=== PATIENT | female | born 1975 | race Caucasian/White ===

== ENCOUNTER 2020-01-10 00:46 | Emergency (ER) | payer MEDICAID, SELFPAY | END 2020-01-10 04:45 | disposition admitted as inpatient to this hospital (09) | LOC: ER 01-28 13:20 | PROVIDERS: Emergency Provider Emergency Medicine; PCP Family Medicine | DX: J18.9 Pneumonia, unspecified organism (principal); G91.1 Obstructive hydrocephalus; F32.9 Major depressive disorder, single episode, unspecified; G82.50 Quadriplegia, unspecified; Z93.1 Gastrostomy status; Z87.820 Personal history of traumatic brain injury; Z86.14 Personal history of Methicillin resistant Staphylococcus aureus infection; Z74.01 Bed confinement status | CPT/HCPCS: 12345; 71045; 80053; 81001; 83605; 85025; 87040; 87804; 96365; 96368; 99283; 99285; J0456; J0696; J2020; J7030; J7050 ==

== ENCOUNTER 2020-01-10 00:46 | Inpatient (IN) | payer MEDICAID, SELFPAY ==
[2020-01-10] VITALS (11 sets, daily range): BP systolic 97–182; BP diastolic 61–102; PULSE 57–121; RESP 17–35; TEMP 37.1–39.3; O2SAT 95–99; BMI 30.9
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
--- NOTE | 2020-01-10 01:13 | XRR_ITS ---
PROCEDURE INFORMATION: Exam: XR Chest, 1 View Exam date and time: 01/10/2020 1:38 AM Age: 44 years old Clinical indication: Cough and fever TECHNIQUE: Imaging protocol: XR of the chest Views: 1 view. COMPARISON: CR Chest 1 [place] [id number] 06/19/2015 4:03 AM FINDINGS: Lungs: Unremarkable. No consolidation. Pleural space: Unremarkable. No pleural effusion. No pneumothorax. Heart/Mediastinum: Unremarkable. No cardiomegaly. Bones/joints: Unremarkable. XR/XR chest 1V portable [id number] IMPRESSION: No acute findings.
[2020-01-10 01:51] LABS: Basophils % 0.2 %; Eosinophils % 0.2 %; Hematocrit 46.5 % (37.0-47.0); Hemoglobin 15.4 g/dL (11.5-15.3); Lymphocytes # 0.7 10^3/uL (0.8-4.8); Mean Corpuscular HGB Conc 33.1 g/dL (30.0-36.0); Mean Corpuscular Hemoglobin 32.3 pg (28.0-34.0); Mean Corpuscular Volume 97.5 fL (81-99); Mean Platelet Volume 12.4 fL (7.4-10.4); Monocytes # 0.8 10^3/uL (0.2-0.9); Monocytes % 4.4 %; Neutrophils # 16.8 10^3/uL (1.8-7.7); Neutrophils % 90.7 %; Nucleated Red Blood Cells % 0 %; Platelet Count 241 10^3/cmm (130-400); Red Blood Count 4.77 10^6/uL (4.1-5.3); Red Cell Distribution Width 11.9 % (12.1-15.1); White Blood Count 18.5 10^3/uL (4.0-10.0)
[2020-01-10] MEDS: sodium chloride 0.9% 1,000 ML 999 ML IV (01:58)
[2020-01-10 02:06] LABS: Lactate (Lactic Acid level) 3.7 mmol/L (0.5-2.2)
[2020-01-10 02:07] LABS: Alanine Aminotransferase 66 U/L (0-33); Albumin Level 4.1 g/dL (3.5-5.2); Alkaline Phosphatase 54 IU/L (35-105); Anion Gap 19.7 (5-19); Aspartate Amino Transferase 34 U/L (0-32); Blood Urea Nitrogen 10 mg/dL (6-20); Calcium 10.2 mg/dL (8.5-10.5); Carbon Dioxide 20 mmol/L (22-29); Chloride 101 mmol/L (98-107); Globulin 3.9 g/dL (1.3-4.6); Glomerular Filtration Rate 132.8 mL/min (90-130); Glucose 119 mg/dL (65-115); Osmolality Calculated 281 mOsm/kg (285-295); Potassium 3.7 mmol/L (3.5-5.1); Sodium 137 mmol/L (136-145); Total Bilirubin 0.7 mg/dL (0.15-1.2)
[2020-01-10 02:13] LABS: Influenza A by IFA Negative (Negative); Influenza B by IFA Negative (Negative)
[2020-01-10] MEDS: ibuprofen 600 mg Tablet J-TUBE (02:32)
[2020-01-10] MEDS: cefTRIAXone 1,000 MG in sodium chloride 0.9% (plus) 50 ML 100 MG IV (02:33)
[2020-01-10] MEDS: azithromycin 500 MG in sodium chloride 0.9% 250 ML 250 MG IV (03:07)
[2020-01-10 03:18] LABS: Bilirubin Urine Neg (NEGATIVE); Blood Urine Neg (Negative); Glucose Urine UA Norm (Normal); Ketones Urine 1+ (Negative); Nitrate Urine Negative (Negative); Protein Urine Trace (Negative); Specific Gravity, Urine 1.025 (1.005-1.030); Urine Appearance Clear (CLEAR); Urine Color Yellow (Yellow); pH Urine 5 (5-7)
[2020-01-10 03:19] LABS: Bacteria Urine 1+; Leukocyte Esterase Urine Negative (Negative); Mucus Urine 3+; RBC Urine 0-4 /hpf (0-2); Squamous Epithelial Cell Urine 0-4 (0-5); Urobilinogen Urine Norm (Negative)
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
--- NOTE | 2020-01-10 04:05 | PC.NURSE ---
During patient rounding, patient was found with darkened ring of urine dried on the reusable tierra under patient. Also while providing cynthia care, dried urine was wiped from patient and appeared dark yellow in color on wet clothes. Patient's cynthia area appeared very reddened and irritated from urine setting on skin. Patient was cleaned and clean disposable chucks and briefs were placed under patient along with clean sheets.
--- NOTE | 2020-01-10 04:07 | CTR_ITS ---
PROCEDURE INFORMATION: Exam: CT Abdomen And Pelvis Without Contrast Exam date and time: 01/10/2020 4:14 AM Age: 44 years old Clinical indication: Abdominal pain; Additional info: Abdominal pain and sepsis TECHNIQUE: Imaging protocol: Computed tomography of the abdomen and pelvis without contrast. Total DLP: 1208.55 mGy-cm Radiation optimization: All CT scans at this facility use at least one of these dose optimization techniques: automated exposure control; mA and/or kV adjustment per patient size (includes targeted exams where dose is matched to clinical indication); or iterative reconstruction. COMPARISON: No relevant prior studies available. FINDINGS: Lungs: Mild dependent atelectasis is present. Liver: Normal. No mass. Gallbladder and bile ducts: Normal. No calcified stones. No ductal dilation. Pancreas: Normal. No ductal dilation. Spleen: Normal. No splenomegaly. Adrenals: Normal. No mass. Kidneys and ureters: Normal. No hydronephrosis. Stomach and bowel: Air and fluid-filled large bowel. Gastrostomy. Appendix: No evidence of appendicitis. Intraperitoneal space: No free fluid within the pelvis or within the dependent portions of the peritoneum. Vasculature: Unremarkable. No abdominal aortic aneurysm. Lymph nodes: Numerous inguinal lymph nodes bilaterally. Nonspecific. Bladder: Unremarkable as visualized. Reproductive: Unremarkable as visualized. Bones/joints: Prior resection of the coccyx. Soft tissues: Unremarkable. Other findings: No acute intra-abdominal process. No inflammatory process. No obstruction. CT/CT abdomen pelvis wo con [id number] IMPRESSION: 1. No acute intra-abdominal process. No inflammatory process. No obstruction. 2. No free fluid within the pelvis or within the dependent portions of the peritoneum. 3. Prior resection of the coccyx. 4. Air and fluid-filled large bowel. 5. Gastrostomy. Radiation Dose CTDIVOL = (mGy): DLP = 1208.55 (mGy-cm)
--- NOTE | 2020-01-10 05:14 | PC.PHAR ---
Vancomycin is dosed at 2000mg IVPB every 12 hours to produce a predicted trough level of 14.30 (population based pharmacokinetic analysis). A trough level has been ordered from the lab to be obtained before the fourth dose to confirm and adjust if needed.
[2020-01-10] MEDS: sodium chloride 0.9% 1,000 ML 100 ML IV ×2 (05:29→16:23)
[2020-01-10] MEDS: pantoprazole DR 40 mg Tablet 20 MG PEG-TUBE (08:04)
[2020-01-10] MEDS: sennosides-docusate Tablet 1 TAB PEG-TUBE ×2 (08:04→17:38)
[2020-01-10] MEDS: polyethylene glycol 3350 Pkt 17 gm PEG-TUBE (08:04)
[2020-01-10] MEDS: acetaminophen 325 mg Tablet 650 MG XX ×2 (10:20→16:22)
--- NOTE | 2020-01-10 11:12 | PC.CHAP ---
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 portable pinch riveter visit [] Patient/Family/Request visit [] Outpatient visit [] Follow-up visit [] Physician referral [] Code/Alert [] Routine visit [] Staff referral [] Actively dying [] Patient sleeping [] Family support [] [] Out of room [] Palliative care [] [] Receiving care in room [] Pre-surgical visit [] Trauma [] Long length of stay [] ICU visit [x] Other: Pt is in isolation Relational/Emotional Strength [] Patient feels connected with others/family/visitors/staff [] Distress [] Loneliness/isolation [] Abandonment Spirituality of Patient [] Person of Yissel [] Attends Mormon of their Yissel [] Believes in Prayer [] Reads Bible or Confucianist materials [] There are Spiritual issues to be addressed Staffing Coordinator Interventions [] Prayer [] Active listening [] Non-anxious presence [] Spiritual/emotional support [] Crisis/trauma care [] Spiritual counseling [] Bereavement support [] Provided bereavement packet [] Provided Bible/devotional materials [] Provided toy/stuffed animal, coloring book to patient or family member [] Provided Communion [] Anointing/[place] [] Salvation [] Completed spiritual assessment [] Other: Impact on Illness or Injury [] Angry [] Fearful [] Anxious [] Often cries [] Exhaustion [] Unable to work [] Unable to attend methodist [] Unable to walk/stand [] Unable to read [] Unable to drive [] Unable to eat/drink [] Unable to sleep [] Unable to be with family [] Patient intubated [] Other: Summary No portable pinch riveter visit or follow up as pt is in isolation Time spent with patient 2 minutes
--- NOTE | 2020-01-10 14:13 | P.PN_ITS ---
Subjective Subjective: Interval history: Patient denies having any pain. Reports being hungry when asked. She cannot speak but nods yes or no appropriately. Continues to spike fever and remains tachycardic with significant leukocytosis. Has history of VRE and MRSA. Vitals/I&O/Wt Last Vital Signs Temp 100.4 F H 01/10/20 11:19 Pulse 101 H 01/10/20 11:19 Resp 20 H 01/10/20 11:19 BP 101/67 01/10/20 11:19 Pulse Ox 96 01/10/20 11:19 01/09/20 01/10/20 01/10/20 22:59 06:59 14:59 Intake Total 1150 / 1150 420 / 420 Balance 1150 / 1150 420 / 420 Weight last 48 hrs Weight 81.647 kg Physical Exam Const: COMMON NORMALS: no apparent distress Resp: COMMON NORMALS: normal respiratory effort and clear to auscultation bilaterally AUSCULTATION: clear to auscultation bilaterally Cardio: COMMON NORMALS: regular rate, regular rhythm and S2 normal heart sound RATE: regular rate RHYTHM: regular rhythm HEART SOUNDS: S2 normal OTHER: No lower extremity edema GI: COMMON NORMALS: normal to inspection, nondistended, normoactive bowel sounds and soft to palpation PALPATION: Yes soft OTHER: Appears to be tender throughout on deep palpation. PEG tube insertion site appears noninfected. Data : 01/10/20 01:31 01/10/20 01:31 Micro: Microbiology 01/10/20 01:31 Blood Culture - Preliminary Blood SPECIMEN COLLECTED 01/10/20 01:44 Blood Culture - Preliminary Blood SPECIMEN COLLECTED A&P Assessment and plan (1) Pneumonia: Status: Acute Qualifiers: Laterality: left Lung location: lower lobe of lung Pneumonia type: due to unspecified organism Qualified Code(s): J18.9 - Pneumonia, unspecified organism Code(s): J18.9 - Pneumonia, unspecified organism (2) Malnourished: Status: Acute Code(s): E46 - Unspecified protein-calorie malnutrition (3) Sepsis: Status: Acute Code(s): A41.9 - Sepsis, unspecified organism Additional A&P Information Sepsis secondary to UTI Urinary tract infection with previous history of VRE. Continue Primaxin and change vancomycin to linezolid. 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 Coding Level of Care Code Acute Public Records Officer for [facility] Alexd Diagnoses Pneumonia J18.9 Laterality: left Lung location: lower lobe of lung Pneumonia type: due to unspecified organism Malnourished E46 Sepsis A41.9
[2020-01-10] MEDS: linezolid premix 600 MG/300 ML PREMIX 300 MG IV (16:22)
[2020-01-11] VITALS: BP 99/65; PULSE 104; RESP 20; TEMP 38.9; O2SAT 93
[2020-01-11] MEDS: linezolid premix 600 MG/300 ML PREMIX 300 MG IV ×2 (03:31→15:07)
[2020-01-11] MEDS: acetaminophen 325 mg Tablet 650 MG XX (03:31)
[2020-01-11 04:00] VITALS: BP 90/60; PULSE 84; RESP 16; TEMP 36.6; O2SAT 97
[2020-01-11] MEDS: sodium chloride 0.9% 1,000 ML 999 ML IV (04:57)
[2020-01-11] MEDS: sodium chloride 0.9% 1,000 ML 100 ML IV ×3 (05:36→22:50)
[2020-01-11 05:55] LABS: Basophils % 0.2 %; Hematocrit 38.9 % (37.0-47.0); Lymphocytes # 1.6 10^3/uL (0.8-4.8); Lymphocytes % 14.4 %; Mean Corpuscular HGB Conc 33.4 g/dL (30.0-36.0); Mean Corpuscular Hemoglobin 33.7 pg (28.0-34.0); Mean Corpuscular Volume 100.8 fL (81-99); Mean Platelet Volume 11.8 fL (7.4-10.4); Monocytes # 0.6 10^3/uL (0.2-0.9); Monocytes % 5.5 %; Neutrophils # 8.7 10^3/uL (1.8-7.7); Neutrophils % 79.6 %; Nucleated Red Blood Cells % 0 %; Platelet Count 203 10^3/cmm (130-400); Red Blood Count 3.86 10^6/uL (4.1-5.3); Red Cell Distribution Width 12.3 % (12.1-15.1); White Blood Count 10.9 10^3/uL (4.0-10.0)
[2020-01-11 06:17] LABS: Anion Gap 13.2 (5-19); Blood Urea Nitrogen 7 mg/dL (6-20); Calcium 8.4 mg/dL (8.5-10.5); Carbon Dioxide 19 mmol/L (22-29); Chloride 107 mmol/L (98-107); Glomerular Filtration Rate 171.8 mL/min (90-130); Glucose 143 mg/dL (65-115); Osmolality Calculated 280 mOsm/kg (285-295); Potassium 3.2 mmol/L (3.5-5.1); Sodium 136 mmol/L (136-145)
--- NOTE | 2020-01-11 06:42 | PC.NURSE ---
notified hospitalist of vitals trending negatively compared to previous with a BP drop to 99/65. Phys ordered liter bolus over one hour - rechecked vitals BP90/60 HR84 Oxy97% R16 T97.9. No further orders at this time.
[2020-01-11 07:57] VITALS: BP 112/77; PULSE 81; RESP 18; TEMP 37.3; O2SAT 97
[2020-01-11] MEDS: sennosides-docusate Tablet 1 TAB PEG-TUBE ×2 (09:21→18:12)
[2020-01-11] MEDS: pantoprazole DR 40 mg Tablet 20 MG PEG-TUBE (09:21)
[2020-01-11] MEDS: polyethylene glycol 3350 Pkt 17 gm PEG-TUBE (09:22)
[2020-01-11 11:29] VITALS: BP 105/72; PULSE 89; RESP 18; TEMP 37.1; O2SAT 92
[2020-01-11 15:12] VITALS: BP 116/72; PULSE 78; RESP 18; TEMP 37.4; O2SAT 96
--- NOTE | 2020-01-11 16:22 | P.PN_ITS ---
Subjective Subjective: Interval history: Patient appears to be gradually improving. She had no fever since midnight. She appears to be more interactive and cheerful. Urine is growing strep group B. Second culture with gram-negative del is still pending Vitals/I&O/Wt Last Vital Signs Temp 99.3 F 01/11/20 15:12 Pulse 78 01/11/20 15:12 Resp 18 01/11/20 15:12 BP 116/72 01/11/20 15:12 Pulse Ox 96 01/11/20 15:12 01/11/20 01/11/20 01/11/20 06:59 14:59 22:59 Intake Total 1400 / 3270 710 / 710 Balance 1400 / 3270 710 / 710 Weight last 48 hrs Weight 81.647 kg Physical Exam Const: COMMON NORMALS: no apparent distress Resp: COMMON NORMALS: normal respiratory effort and clear to auscultation bilaterally AUSCULTATION: clear to auscultation bilaterally Cardio: COMMON NORMALS: regular rate, regular rhythm and S2 normal heart sound RATE: regular rate RHYTHM: regular rhythm HEART SOUNDS: S2 normal OTHER: No lower extremity edema GI: COMMON NORMALS: normal to inspection, nondistended, normoactive bowel sounds, soft to palpation and non-tender PALPATION: Yes soft OTHER: Appears to be tender throughout on deep palpation. PEG tube insertion site appears noninfected. Data : 01/11/20 05:30 01/11/20 05:30 Micro: Microbiology 01/10/20 05:40 Urine Culture - Preliminary Urine Catheterized Strep agalactiae - (group b) Gram Negative Rods 01/10/20 01:31 Blood Culture - Preliminary Blood NEGATIVE TO DATE 01/10/20 01:44 Blood Culture - Preliminary Blood NEGATIVE TO DATE A&P Assessment and plan (1) Pneumonia: Status: Acute Qualifiers: Laterality: left Lung location: lower lobe of lung Pneumonia type: due to unspecified organism Qualified Code(s): J18.9 - Pneumonia, unspecified organism Code(s): J18.9 - Pneumonia, unspecified organism (2) Malnourished: Status: Acute Code(s): E46 - Unspecified protein-calorie malnutrition (3) Sepsis: Status: Acute Code(s): A41.9 - Sepsis, unspecified organism Additional A&P Information Sepsis secondary to UTI Urinary tract infection with previous history of VRE. Continue current antibiotics for now. 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 No decubital ulcer, she uses adult diapers, no chronic indwelling catheter Protein calorie malnourishment: Low albumin, Jevity 1.2 1 can add a.m., noon, 4 PM and at midnight, 60 cc of water flushes before and after medications For quadriplegia secondary to cranial injury she takes dantrolene 25 mg daily, Keppra 100 mg oral liquid 7.5 mL twice a day Constipation: Senna S and MiraLAX daily Tylenol for as needed usage for pain and fever DNR/DNI Attestations Medical Necessity Statement*: Patient with quadriplegia and UTI with sepsis requires close inpatient monitoring and treatment will deemed safe for discharge. Coding Level of Care Code Acute Neurosurgery Research Director for [facility] Diagnoses Pneumonia J18.9 Laterality: left Lung location: lower lobe of lung Pneumonia type: due to unspecified organism Malnourished E46 Sepsis A41.9
[2020-01-11 18:03] LABS: Vancomycin Trough < 4.0 ug/mL (10-15)
--- NOTE | 2020-01-11 19:10 | PC.NURSE ---
Introduction of staff and report received, aidet.
[2020-01-11 20:00] VITALS: BP 112/74; PULSE 82; RESP 20; TEMP 37.6; O2SAT 96
[2020-01-12] MEDS: linezolid premix 600 MG/300 ML PREMIX 300 MG IV ×2 (03:41→15:31)
[2020-01-12 04:00] VITALS: BP 106/71; PULSE 72; RESP 24; TEMP 37; O2SAT 97
[2020-01-12] MEDS: enoxaparin 40 mg/0.4 mL Syringe SUBCUT (05:53)
[2020-01-12 07:32] VITALS: BP 111/74; PULSE 83; RESP 18; TEMP 36.7; O2SAT 98
[2020-01-12] MEDS: pantoprazole DR 40 mg Tablet 20 MG PEG-TUBE (08:06)
[2020-01-12] MEDS: sennosides-docusate Tablet 1 TAB PEG-TUBE ×2 (08:07→19:18)
[2020-01-12] MEDS: polyethylene glycol 3350 Pkt 17 gm PEG-TUBE (08:07)
[2020-01-12 10:00] VITALS: BMI 36.6
[2020-01-12 10:36] VITALS: BP 108/70; PULSE 77; RESP 18; TEMP 37; O2SAT 97
[2020-01-12 11:19] LABS: Glucose Point of Care 117 mg/dL (70-110)
[2020-01-12 11:42] LABS: Basophils % 0.3 %; Eosinophils % 0.5 %; Hematocrit 40.3 % (37.0-47.0); Hemoglobin 13.3 g/dL (11.5-15.3); Lymphocytes # 2.1 10^3/uL (0.8-4.8); Lymphocytes % 34.6 %; Mean Corpuscular Hemoglobin 32.3 pg (28.0-34.0); Mean Corpuscular Volume 97.8 fL (81-99); Mean Platelet Volume 11.8 fL (7.4-10.4); Monocytes # 0.5 10^3/uL (0.2-0.9); Monocytes % 8.5 %; Neutrophils # 3.4 10^3/uL (1.8-7.7); Neutrophils % 55.9 %; Nucleated Red Blood Cells % 0 %; Platelet Count 231 10^3/cmm (130-400); Red Blood Count 4.12 10^6/uL (4.1-5.3); Red Cell Distribution Width 12.1 % (12.1-15.1)
[2020-01-12 12:06] LABS: Alanine Aminotransferase 31 U/L (0-33); Albumin Level 3.2 g/dL (3.5-5.2); Alkaline Phosphatase 46 IU/L (35-105); Anion Gap 15.8 (5-19); Aspartate Amino Transferase 18 U/L (0-32); Blood Urea Nitrogen 3 mg/dL (6-20); Calcium 9.2 mg/dL (8.5-10.5); Carbon Dioxide 21 mmol/L (22-29); Chloride 108 mmol/L (98-107); Globulin 3.1 g/dL (1.3-4.6); Glomerular Filtration Rate 239.5 mL/min (90-130); Glucose 131 mg/dL (65-115); Osmolality Calculated 289 mOsm/kg (285-295); Potassium 3.8 mmol/L (3.5-5.1); Sodium 141 mmol/L (136-145); Total Bilirubin 0.2 mg/dL (0.15-1.2); Total Protein 6.3 g/dL (6.6-8.7)
--- NOTE | 2020-01-12 13:01 | PM.PN ---
Subjective Subjective: Interval history: Patient denies any pain. She continues to remain afebrile with stable vitals. Her urine is growing ESBL E. coli and strep agalactiae. Discussed with RN. Patient has no evidence of diarrhea and tolerates feeds well. Vitals/I&O/Wt Last Vital Signs Temp 98.6 F 01/12/20 10:36 Pulse 77 01/12/20 10:36 Resp 18 01/12/20 10:36 BP 108/70 01/12/20 10:36 Pulse Ox 97 01/12/20 10:36 01/11/20 01/12/20 01/12/20 22:59 06:59 14:59 Intake Total 2480 / 3290 580 / 3870 100 / 100 Balance 2480 / 3290 580 / 3870 100 / 100 Weight last 48 hrs Weight 96.757 kg Weight 96.757 kg Physical Exam Const: COMMON NORMALS: no apparent distress Resp: COMMON NORMALS: normal respiratory effort and clear to auscultation bilaterally AUSCULTATION: clear to auscultation bilaterally Cardio: COMMON NORMALS: regular rate, regular rhythm and S2 normal heart sound RATE: regular rate RHYTHM: regular rhythm HEART SOUNDS: S2 normal OTHER: No lower extremity edema GI: COMMON NORMALS: normal to inspection, nondistended, normoactive bowel sounds, soft to palpation and non-tender PALPATION: Yes soft OTHER: Appears to be tender throughout on deep palpation. PEG tube insertion site appears noninfected. Data : 01/12/20 11:30 01/12/20 11:30 Micro: Microbiology 01/10/20 05:40 Urine Culture - Final Urine Catheterized Strep agalactiae - (group b) Escherichia coli esbl A&P Assessment and plan (1) Pneumonia: Status: Acute Qualifiers: Laterality: left Lung location: lower lobe of lung Pneumonia type: due to unspecified organism Qualified Code(s): J18.9 - Pneumonia, unspecified organism Code(s): J18.9 - Pneumonia, unspecified organism (2) Malnourished: Status: Acute Code(s): E46 - Unspecified protein-calorie malnutrition (3) Sepsis: Status: Acute Code(s): A41.9 - Sepsis, unspecified organism Additional A&P Information Sepsis secondary to UTI Urinary tract infection with ESBL E. coli and strep group B. Continue current antibiotics for now. Patient will require ertapenem 1 g daily for 10 days upon discharge. 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 No decubital ulcer, she uses adult diapers, no chronic indwelling catheter Protein calorie malnourishment: Low albumin, Jevity 1.2 1 can add a.m., noon, 4 PM and at midnight, 60 cc of water flushes before and after medications For quadriplegia secondary to cranial injury she takes dantrolene 25 mg daily, Keppra 100 mg oral liquid 7.5 mL twice a day Constipation: Senna S and MiraLAX daily Tylenol for as needed usage for pain and fever DNR/DNI Attestations Medical Necessity Statement*: Patient with drug-resistant UTI requiring IV antibiotic requires close inpatient monitoring and treatment till PICC line is placed after which patient can be dismissed to nursing facility on IV ertapenem 1 g daily for 10 days. Coding Level of Care Code Acute Dredge Engineer for [facility] Diagnoses Pneumonia J18.9 Laterality: left Lung location: lower lobe of lung Pneumonia type: due to unspecified organism Malnourished E46 Sepsis A41.9
[2020-01-12 15:17] VITALS: BP 110/74; PULSE 70; RESP 20; TEMP 36.8; O2SAT 98
[2020-01-12] MEDS: sodium chloride 0.9% 1,000 ML 100 ML IV (19:17)
[2020-01-12 20:00] VITALS: BP 109/72; PULSE 75; RESP 18; TEMP 37.2; O2SAT 100
[2020-01-13] VITALS: BP 108/72; PULSE 78; RESP 18; TEMP 37.3; O2SAT 99
[2020-01-13] MEDS: linezolid premix 600 MG/300 ML PREMIX 300 MG IV (02:36)
[2020-01-13 04:00] VITALS: BP 105/70; PULSE 80; RESP 19; TEMP 37.1; O2SAT 97
[2020-01-13 06:19] LABS: Basophils % 0.3 %; Eosinophils # 0.1 10^3/uL (0.0-0.8); Eosinophils % 1.3 %; Hematocrit 38.4 % (37.0-47.0); Hemoglobin 13.1 g/dL (11.5-15.3); Lymphocytes # 2.8 10^3/uL (0.8-4.8); Lymphocytes % 45.4 %; Mean Corpuscular HGB Conc 34.1 g/dL (30.0-36.0); Mean Corpuscular Hemoglobin 33.4 pg (28.0-34.0); Mean Platelet Volume 11.5 fL (7.4-10.4); Monocytes # 0.5 10^3/uL (0.2-0.9); Monocytes % 8.5 %; Neutrophils # 2.7 10^3/uL (1.8-7.7); Neutrophils % 44.3 %; Nucleated Red Blood Cells % 0 %; Platelet Count 259 10^3/cmm (130-400); Red Blood Count 3.92 10^6/uL (4.1-5.3); Red Cell Distribution Width 12.2 % (12.1-15.1); White Blood Count 6.1 10^3/uL (4.0-10.0)
[2020-01-13] MEDS: enoxaparin 40 mg/0.4 mL Syringe SUBCUT (06:19)
[2020-01-13] MEDS: sodium chloride 0.9% 1,000 ML 100 ML IV (06:20)
[2020-01-13 06:36] LABS: Alanine Aminotransferase 24 U/L (0-33); Albumin Level 3.2 g/dL (3.5-5.2); Alkaline Phosphatase 41 IU/L (35-105); Anion Gap 15.5 (5-19); Aspartate Amino Transferase 13 U/L (0-32); Blood Urea Nitrogen 5 mg/dL (6-20); Calcium 9.2 mg/dL (8.5-10.5); Carbon Dioxide 22 mmol/L (22-29); Chloride 107 mmol/L (98-107); Glomerular Filtration Rate 239.5 mL/min (90-130); Glucose 110 mg/dL (65-115); Osmolality Calculated 288 mOsm/kg (285-295); Potassium 3.5 mmol/L (3.5-5.1); Sodium 141 mmol/L (136-145); Total Bilirubin 0.2 mg/dL (0.15-1.2); Total Protein 6.2 g/dL (6.6-8.7)
[2020-01-13 07:56] VITALS: BP 109/72; PULSE 76; RESP 16; TEMP 37.1; O2SAT 95
[2020-01-13] MEDS: sennosides-docusate Tablet 1 TAB PEG-TUBE ×2 (08:41→17:52)
[2020-01-13] MEDS: pantoprazole DR 40 mg Tablet 20 MG PEG-TUBE (08:41)
[2020-01-13] MEDS: polyethylene glycol 3350 Pkt 17 gm PEG-TUBE (08:42)
--- NOTE | 2020-01-13 08:45 | XR_ITS ---
WS: [id number] CHEST XRAY TECHNIQUE: Portable chest. CLINICAL INFORMATION: picc placement COMPARISON: January 10, 2020 FINDINGS: Right PICC line with tip in good position in the mid SVC. Heart: Cardiomegaly. Lungs: Shallow inspiration with mild pulmonary vascular congestion. No focal pneumonia. Bones: Mild thoracolumbar curve Cholecystectomy clips. XR/XR chest 1V portable [id number] IMPRESSION: Right PICC line in good position with tip in the mid SVC.
[2020-01-13] MEDS: ertapenem 1,000 MG in sodium chloride 0.9% (plus) 100 ML 200 MG IV (11:44)
[2020-01-13 11:50] VITALS: BP 113/80; PULSE 83; RESP 20; TEMP 37.3; O2SAT 96
--- NOTE | 2020-01-13 13:13 | P.DS_ITS ---
Discharge Providers Date of Admission: 01/10/20 03:39 Date of Discharge: January 13, 2020 Attending Provider at Admission: Abril Tamez MD Attending Provider at Discharge: Albert Lopez MD Primary Care Provider: Rashad Locke Diagnoses at Discharge Discharge Diagnosis (1) Pneumonia: Status: Acute Qualifiers: Laterality: left Lung location: lower lobe of lung Pneumonia type: due to unspecified organism Qualified Code(s): J18.9 - Pneumonia, unspecified organism (2) Malnourished: Status: Acute (3) Sepsis: Status: Acute (4) UTI due to extended-spectrum beta lactamase (ESBL) producing Escherichia coli: Status: Acute Reason for Visit Reason for Visit: Reason For Visit: fever Hospital Course Discharge Summary: Patient presented with fever secondary to urinary tract infection. She is quadriplegic and is currently a resident of nursing facility. She was started on fluids and antibiotics and gradually improved. Because her urine came back with ESBL infection PICC line was placed and patient will be dismissed today on ertapenem for 10 more days. Patient is much improved based on her grandmother at bedside. She is cheerful and denies any pain. I will switch Pepcid to Protonix to avoid any effect on smooth muscle that could potentially predispose patient to UTI. Physical Exam Const: COMMON NORMALS: no apparent distress Resp: COMMON NORMALS: normal respiratory effort and clear to auscultation bilaterally AUSCULTATION: clear to auscultation bilaterally Cardio: COMMON NORMALS: regular rate, regular rhythm and S2 normal heart sound RATE: regular rate RHYTHM: regular rhythm HEART SOUNDS: S2 normal OTHER: No lower extremity edema GI: COMMON NORMALS: normal to inspection, nondistended, normoactive bowel sounds, soft to palpation and non-tender PALPATION: Yes soft Discharge Data Data Completed and Pending: Completed Studies During Hospitalization Category Date Time Status CT abdomen pelvis wo con [id number] Urge nt Cat Scan 01/10/20 04:07 Completed XR chest 1V sara ble [id number] Routine Exams 01/13/20 08:45 Completed XR chest 1V sara ble [id number] Stat Exams 01/10/20 01:13 Completed Pending at discharge Category Date Time Status Blood Culture Sta t Lab 01/10/20 01:31 Results Complete Blood Co unt w/Auto AM LABS Lab 01/14/20 04:00 Ordered Complete Blood Co unt w/Auto AM LABS Lab 01/15/20 04:00 Ordered Comprehensive Met abolic Panel AM LA BS Lab 01/14/20 04:00 Ordered Comprehensive Met abolic Panel AM LA BS Lab 01/15/20 04:00 Ordered Labs from last 24 hours 01/13/20 01/13/20 06:07 06:07 WBC 6.1 RBC 3.92 L Hgb 13.1 Hct 38.4 MCV 98.0 MCH 33.4 MCHC 34.1 RDW 12.2 Plt Count 259 MPV 11.5 H Neut % (Auto) 44.3 Lymph % (Auto) 45.4 [place] % (Auto) 8.5 Eos % (Auto) 1.3 Baso % (Auto) 0.3 Neut # (Auto) 2.7 Lymph # (Auto) 2.8 [place] # (Auto) 0.5 Eos # (Auto) 0.1 Baso # (Auto) 0.0 Nucleated RBC % (a uto) 0 Nucleated RBCs # 0.0 Sodium 141 Potassium 3.5 Chloride 107 Carbon Dioxide 22 Anion Gap 15.5 BUN 5 L Creatinine 0.3 L GFR Calculation 239.5 H Glucose 110 Calculated Osmolal ity 288 Calcium 9.2 Total Bilirubin 0.2 AST 13 ALT 24 Alkaline Phosphata se 41 Total Protein 6.2 L Albumin 3.2 L Globulin 3.0 Vitals: Last Vital Signs Temp 99.1 F 01/13/20 11:50 Pulse 83 01/13/20 11:50 Resp 20 H 01/13/20 11:50 BP 113/80 01/13/20 11:50 Pulse Ox 96 01/13/20 11:50 Discharge Plan Discharge Patient Disposition: Xfer SNF Condition: Stable Prescriptions: New pantoprazole 40 mg Tablet,Delayed Release (Dr/Ec) 20 mg peg-tube DAILY Qty: 30 RF: 0 ertapenem [Invanz] 1 gram recon soln 1 gm IV DAILY Qty: 10 RF: 0 Continued ascorbic acid (vitamin C) 500 mg peg-tube DAILY RF: 0 dantrolene 25 mg G-tube DAILY RF: 0 Depo-Provera 150 mg IM DIRECTED RF: 0 polyethylene glycol 3350 17 g peg-tube DAILY RF: 0 1 tab G-tube DAILY RF: 0 Zyrtec 5 mg peg-tube DAILY RF: 0 ferrous sulfate 300 mg peg-tube BID RF: 0 levetiracetam 7.5 ml G-tube BID RF: 0 potassium chloride 20 meq peg-tube BID RF: 0 Senokot 8.6 mg peg-tube BID RF: 0 Tylenol 500 mg peg-tube PRN RF: 0 albuterol sulfate 1 amp nebulizer PRN RF: 0 bisacodyl 10 mg MS PRN RF: 0 Discontinued Pepcid 20 mg G-tube DAILY RF: 0 Discharge Orders: Discharge Order (Routine); Ordered 01/13/20 Ordered By: Albert Lopez Referrals: [facility] [Other] Rashad Locke [Primary Care Provider] - Discharge Diet: Usual diet Discharge Activity: Resume usual activity Activity Restrictions/Additional Instructions: Please call your doctor or present to emergency department if your condition worsens or you develop diarrhea. Patient to have PICC line removed after successful treatment of UTI in 10 days. Discharge Attestations Time Spent in Discharge Care*: greater than 30 min Quality Metrics Clinical Quality Measures During this hospital stay, did patient experience: None Coding Level of Care Code Acute Operations Leader for [facility] Fwd Diagnoses Pneumonia J18.9 Laterality: left Lung location: lower lobe of lung Pneumonia type: due to unspecified organism Malnourished E46 Sepsis A41.9 UTI due to extended-spectrum beta lactamase (ESBL) producing Escherichia coli N39.0; B96.29; Z16.12
[2020-01-13 13:36] VITALS: BP 113/80; PULSE 83; RESP 20; TEMP 37.3; O2SAT 96
[2020-01-13 15:43] VITALS: PULSE 77; RESP 16; TEMP 37.4; O2SAT 95
== END 2020-01-13 18:17 | disposition skilled nursing facility (03) | DRG 871 ==
LOC: ER 03:35 → MEDSURG 04:09
PROVIDERS: Physician Assistant; Admitting Provider Internal Medicine; Emergency Provider Emergency Medicine; PCP Family Medicine; Visit Provider Internal Medicine
DX: A41.9 Sepsis, unspecified organism (principal); J18.9 Pneumonia, unspecified organism; G82.50 Quadriplegia, unspecified; E46 Unspecified protein-calorie malnutrition; N39.0 Urinary tract infection, site not specified; Z16.12 Extended spectrum beta lactamase (ESBL) resistance; B96.29 Other Escherichia coli [E. coli] as the cause of diseases classified elsewhere; R61 Generalized hyperhidrosis; K59.00 Constipation, unspecified; Z66 Do not resuscitate; B95.4 Other streptococcus as the cause of diseases classified elsewhere; Z68.36 Body mass index [BMI] 36.0-36.9, adult; Z74.01 Bed confinement status; Z79.51 Long term (current) use of inhaled steroids; Z79.82 Long term (current) use of aspirin
CPT/HCPCS: 12345; 36415; 36416; 36569; 71045; 74176; 80048; 80053; 80202; 81001; 82962; 83605; 85025; 87040; 87077; 87086; 87186; 87804; 96372; 99283; J0456; J0696; J0743; J1335; J1650; J2020; J3370; J7030; J7040; J7050

== ENCOUNTER 2021-11-13 16:18 | Emergency (ER) | payer MEDICAID, SELFPAY ==
[2021-11-13 16:18] VITALS: BP 108/51; PULSE 73; RESP 15; O2SAT 95
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
== END 2021-11-13 16:38 | disposition home or self-care (01) ==
LOC: ER 04-30 12:40
PROVIDERS: Emergency Provider Family Medicine; PCP Family Medicine
DX: K94.23 Gastrostomy malfunction (principal)

== ENCOUNTER → 2022-08-14 14:47 | Outpatient (BNVA) | payer MEDICAID, SELFPAY | PROVIDERS: PCP Internal Medicine; Visit Provider Otolaryngology | DX: L98.9 Disorder of the skin and subcutaneous tissue, unspecified (principal) | CPT/HCPCS: 99203 ==

== ENCOUNTER 2022-08-22 09:00 | Day surgery (SDC) | payer MEDICAID, SELFPAY ==
[2022-08-21 09:59] VITALS: BMI 36.7
[2022-08-22] VITALS (12 sets, daily range): BP systolic 110–129; BP diastolic 60–89; PULSE 63–99; RESP 16–23; TEMP 36.6–37.2; O2SAT 91–97
--- NOTE | 2022-08-22 09:21 | W.PM.OPSUD ---
Surgery/Procedure H&P Update DATE OF PROCEDURE: August 22, 2022 DATE H&P PERFORMED: 08/14/22 H&P UPDATE INFORMATION: I have reviewed H&P completed within last 30 days, I have examined patient prior to procedure and No changes to prior documentation CHANGES TO PREVIOUS DOCUMENTATION: No changes PREOP DIAGNOSIS: External left nasal lesion PRIMARY INDICATION FOR PROCEDURE: Left lateral alar external nasal mass/lesion. PLANNED PROCEDURE: Operation Date: 08/22/22 10:10 Proposed Procedures p [id number]- Excision of left external nasal lesion and repair with flap(Left) - Shashi Bowman MD
[2022-08-22] MEDS: sodium chloride 0.9% 1,000 ML 30 ML IV (10:24)
[2022-08-22] MEDS: ceFAZolin 2,000 MG in sodium chloride 0.9% (plus) 50 ML 100 MG IV (10:34)
[2022-08-22] MEDS: neomycin-poly-bacitracin oint 28 gm 1 APPLIC TOPICAL (11:59)
--- NOTE | 2022-08-22 12:14 | P.OP_ITS ---
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 Flap less than 10 cm? Implants: Telfa packing left nostril area Specimens removed/disposition: Skin lesion from left alar region sent for frozen section. Pathology: Frozen section returned as margins clear with pathology on frozen consistent with mucinous basal cell carcinoma. Surgeon: Shashi Bowman MD Anesthesia: General and Local Estimated blood loss: 20 mL Complications: No complications Findings: Patient had a 1 cm plus enlarged exophytic partially pedunculated lobulated mass growing on the left lateral alar skin. It has been growing for an extended period of time and then suddenly started changing and growing rapidly. Seen in the office and this was considered suspicious for malignancy. Brief History: 46-year-old female patient with left external nasal alar skin lesion consistent with malignancy brought to the operating room at this time to undergo excision. She will have this done with LMA and local. The procedure its risks and complications are understood by caregivers and informed consent granted. They understand that a reconstructive nasolabial flap will be used for reconstruction. Frozen section will be used for diagnosis and margins. Risks include bleeding infection numbness scarring swelling bruising cosmetic change and need for additional treatment as well as anesthetic risks. With these things understood informed consent was granted and witnessed. Procedure: Description of procedure: The patient was placed on the operating table in the supine position. Adequate general LMA anesthesia was obtained. She was repositioned into a semirecumbent position and tilted slightly to the right side. The timeout was accomplished identifying the patient date of plan procedure allergies fire risk and medications given. With all in agreement the procedure continued. Trent the site was noted. The area was cleansed with alcohol. A total of 8.5 mL of 2% Xylocaine with 1 100,000 epinephrine was used to infiltrate in a field and local block. Then the patient was prepped and draped in usual fashion. Eye protection was accomplished. Care was taken to make sure that the ChloraPrep did not get anywhere near her eyes. The marking pen was used to outline the excision pattern which incorporated the alar rim and nostril area extending inward for about 5 mm. The excision area was approximately 2 x 2 externally. This was excised and marked laterally with a suture. It was forwarded for frozen section pathology. While that was pending hemostasis was attained with bipolar cautery. A planned nasolabial flap was laid out but incisions were not made until we knew that we had clear margins. Pathology returned as mucinous basal cell carcinoma with all margins clear. With that information accomplished the nasolabial flap was incised with a 15 blade making sure that the vascular supply was maintained into the skin and the entire flap was viable. Then the flap was rotated into proper position and sutured in multiple layers with interrupted 4-0 chromic deep and intranasally and 5-0 nylon to close the skin together. Once this was accomplished pressure was applied. No active bleeding was encountered. Telfa was applied coated with Neosporin into the left nostril extending approximately 2.5 cm into the nose. This was to keep the nose and nostril area patent. The skin was then cleansed. With no bleeding evident Neosporin ointment was applied over the external incisions. Throat was suctioned. Patient was returned to anesthesia for wake- up and transport to recovery. She tolerated the procedure well and arrived in recovery in stable condition.
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
[2022-08-22] MEDS: acetaminophen 650 mg/20.3 mL UDC 1000 MG PO (13:20)
--- NOTE | 2022-08-22 14:05 | SUR.PHASEII ---
[id number] report given to Gwendolyn at [facility],d/c instructions given to family and informed nurse Gwendolyn when last liquid tylenol given,phone no [phone]
== END 2022-08-22 14:00 | disposition home or self-care (01) ==
PROVIDERS: PCP Internal Medicine; Visit Provider Otolaryngology
PROC: 0HB1XZZ Excision of Face Skin, External Approach (ICD-10-PCS; CPT 14060; principal; 2022-08-22 10:00)
DX: C44.311 Basal cell carcinoma of skin of nose (principal); Z87.820 Personal history of traumatic brain injury; G83.9 Paralytic syndrome, unspecified; Z86.14 Personal history of Methicillin resistant Staphylococcus aureus infection
CPT/HCPCS: 14060; 88304; 88331; J1100; J2405; J2704; J3010; J7030

== ENCOUNTER → 2022-08-28 12:56 | Outpatient (BNVA) | payer MEDICAID, SELFPAY | PROVIDERS: PCP Internal Medicine; Visit Provider Otolaryngology | DX: C44.311 Basal cell carcinoma of skin of nose; Z48.817 Encounter for surgical aftercare following surgery on the skin and subcutaneous tissue | CPT/HCPCS: 99024 ==

== ENCOUNTER → 2022-08-30 11:05 | Outpatient (BNVA) | payer MEDICAID, SELFPAY | PROVIDERS: PCP Internal Medicine; Visit Provider Otolaryngology | DX: Z48.89 Encounter for other specified surgical aftercare (principal); L98.9 Disorder of the skin and subcutaneous tissue, unspecified; C44.311 Basal cell carcinoma of skin of nose | CPT/HCPCS: 99024 ==

== ENCOUNTER → 2022-10-23 08:36 | Outpatient (BNVA) | payer MEDICAID, SELFPAY | PROVIDERS: PCP Internal Medicine; Visit Provider Otolaryngology | DX: L98.9 Disorder of the skin and subcutaneous tissue, unspecified (principal) | CPT/HCPCS: 99024 ==

== ENCOUNTER 2025-02-12 10:06 | Inpatient (IN) | payer MEDICAID, SELFPAY ==
[2025-02-12] VITALS (7 sets, daily range): BP systolic 111–138; BP diastolic 63–96; PULSE 102–117; RESP 15–34; TEMP 37.9–38.4; O2SAT 94–98; BMI 37.4
--- NOTE | 2025-02-12 10:12 | XRR_ITS ---
PROCEDURE INFORMATION: Exam: XR Chest Exam date and time: 02/12/2025 10:50 AM Age: 49 years old Clinical indication: Other: Weakness; PT arrives via EMS from [facility]. W/ C/O of fever and worry of sepsis. 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 HX of tbi, nonverbal. TECHNIQUE: Imaging protocol: Radiologic exam of the chest. Views: 1 view. COMPARISON: CR XR chest 1V portable [id number] 01/13/2020 9:51 AM FINDINGS: Lungs: The pulmonary vessels are within normal limits. The lungs are clear. Pleural spaces: No pneumothorax. Heart/Mediastinum: The cardiomediastinal silhouette is within normal limits. Bones/joints: Osseous structure is unremarkable. XR/XR chest 1V portable [id number] IMPRESSION: No acute pulmonary finding.
[2025-02-12 10:33] LABS: Basophils # 0.1 10^3/uL (0.0-0.1); Basophils % 0.3 %; Hematocrit 46.9 % (36-47); Lymphocytes # 1.6 10^3/uL (0.8-4.8); Lymphocytes % 7.2 %; Mean Corpuscular HGB Conc 32.6 g/dL (30-55); Mean Corpuscular Hemoglobin 31.9 pg (27-33); Mean Corpuscular Volume 97.9 fl (85-98); Mean Platelet Volume 11.4 fL (7.4-10.4); Monocytes % 4.2 %; Neutrophils % 87.6 %; Nucleated Red Blood Cells % 0 %; Platelet Count 262 10^3/cmm (157-399); Red Blood Count 4.79 10^6/uL (3.85-5.65); Red Cell Distribution Width 12.4 % (12.1-15.1); White Blood Count 22.72 10^3/uL (3.29-11.43)
--- NOTE | 2025-02-12 10:35 | PC.PHAR ---
patient is from [facility]
[2025-02-12 10:37] LABS: Erythrocyte Sedimentation Rate 17 mm/hr (0-15)
[2025-02-12 10:43] LABS: Bilirubin Urine Neg (Negative); Blood Urine 3+ (Negative); Glucose Urine UA 4+ (Normal); Ketones Urine 1+ (Negative); Leukocyte Esterase Urine 1+ (Negative); Nitrate Urine Negative (Negative); Protein Urine Neg (Negative); Specific Gravity, Urine 1.015 (1.005-1.030); Urine Appearance Clear (CLEAR); Urine Color Yellow (Yellow); Urobilinogen Urine Neg (Negative); pH Urine 5 (5-7)
[2025-02-12 10:45] LABS: Hyaline Casts Urine 0.81 /lpf; Squamous Epithelial Cell Urine 0-5 /hpf (0-5); WBC Urine 21-50 /hpf (0-5)
[2025-02-12 10:53] LABS: Add Urine Culture? Yes; Alanine Aminotransferase 34 U/L (0-33); Albumin Level 3.6 g/dL (3.5-5.2); Alkaline Phosphatase 69 U/L (35-105); Anion Gap 16.7 (5-19); Aspartate Amino Transferase 23 U/L (0-32); Bacteria Urine 2+ /hpf; Blood Urea Nitrogen 12 mg/dL (6-20); C Reactive Protein 46.3 mg/L (0.0-4.9); Calcium 8.9 mg/dL (8.5-10.5); Carbon Dioxide 18 mmol/L (22-29); Chloride 106 mmol/L (98-107); Creatinine Clr Calc Pharmacy 190.1053; Globulin 3.2 g/dL (1.3-4.6); Glomerular Filtration Rate 168.3 mL/min (90-130); Glucose 228 mg/dL (65-115); Osmolality Calculated 291 mOsm/kg (285-295); Potassium 3.7 mmol/L (3.5-5.1); Sodium 137 mmol/L (136-145); Total Bilirubin 0.6 mg/dL (0.15-1.2); Total Protein 6.8 g/dL (6.6-8.7); UA Slide Review UA Slide Review Perf
[2025-02-12 10:55] LABS: Lactic Sepsis W/Reflex 3.4 mmol/L (0.5-2.2)
[2025-02-12 10:59] LABS: Procalcitonin 0.41 ng/mL (0-0.5)
[2025-02-12 11:18] LABS: Influenza A NEGATIVE (Negative); Influenza B NEGATIVE (Negative); Respiratory Syncytial Virus Ce NEGATIVE (Negative); SARS-CoV-2 PCR NEGATIVE (Negative)
[2025-02-12 11:20] LABS: Reflex Lactate Order REFLEX LACTIC ORDERD
[2025-02-12 11:27] LABS: ABG PH Result 7.44 (7.35-7.45); Arterial Blood Gas Hematocrit 50.3 % (37-47); Base Excess ABG -1.9 mmol/L (-2.0-2.0); Blood Gas Allen Test Pos; Blood Gas Operator Identificat glc; Blood Gas Sample Site Radial, right; Blood Gas Sample Type Arterial; Carboxyhemoglobin 1.2 %THgb (0.4-20.1); HCO3 ABG 21.1 mmol/L (22-26); HGB O2 Sat 95.3 % (95-100); Ionized Calcium Level - ABG 1.2 mmol/L (1.1-1.4); Methemoglobin 0.7 % (0.4-1.5); Oxygen Device ROOM AIR; Oxygen Saturation ABG 97.1; PO2 ABG 80.6 mmHg (80.0-100.0); PO2 FiO2 Ratio Arterial Blood 383; Potassium Level - ABG 3.6 mmol/L (3.5-5.0); Total Hemoglobin 16.4 g/dL (12-16)
--- NOTE | 2025-02-12 11:39 | CTR_ITS ---
PROCEDURE INFORMATION: Exam: CT Chest With Contrast; Diagnostic Exam date and time: 02/12/2025 11:56 AM Age: 49 years old Clinical indication: Abdominal pain; Other: Sepsis; Additional info: Trauma TECHNIQUE: Imaging protocol: Diagnostic computed tomography of the chest with contrast. Radiation optimization: All CT scans at this facility use at least one of these dose optimization techniques: automated exposure control; mA and/or kV adjustment per patient size (includes targeted exams where dose is matched to clinical indication); or iterative reconstruction. Contrast material: OMNI 350; Contrast volume: 100 ml; Contrast route: INTRAVENOUS (IV); COMPARISON: CR (CHEST, ) 02/12/2025 10:50 AM RADIATION DOSE METRICS: Total DLP (mGy-cm): 1810.37 FINDINGS: Lungs: Left lower lobe 3 mm calcified granuloma. Pleural spaces: No pneumothorax. Heart: Unremarkable. No cardiomegaly. No pericardial effusion. Lymph nodes: No enlarged mediastinal lymph node. Vasculature: Unremarkable. No aortic aneurysm. Bones/joints: Unremarkable. No acute fracture. Soft tissues: Unremarkable. PROCEDURE INFORMATION: Exam: CT Abdomen And Pelvis With Contrast Exam date and time: 02/12/2025 11:56 AM Age: 49 years old Clinical indication: Abdominal pain; Other: Sepsis; Additional info: Trauma TECHNIQUE: Imaging protocol: Computed tomography of the abdomen and pelvis with contrast. Radiation optimization: All CT scans at this facility use at least one of these dose optimization techniques: automated exposure control; mA and/or kV adjustment per patient size (includes targeted exams where dose is matched to clinical indication); or iterative reconstruction. Contrast material: OMNI 350; Contrast volume: 100 ml; Contrast route: INTRAVENOUS (IV); COMPARISON: CT abdomen pelvis con [id number] 01/10/2020 4:41 AM RADIATION DOSE METRICS: Total DLP (mGy-cm): 1810.37 FINDINGS: Tubes, catheters and devices: Gastrostomy tube is in the stomach. Liver: Normal. No mass. Gallbladder and biliary ducts: Post cholecystectomy changes are seen. Pancreas: Normal. No ductal dilation. Spleen: Normal. No splenomegaly. Adrenal glands: Normal. No mass. Kidneys and ureters: Normal. No hydronephrosis. Stomach and bowel: No dilated small bowel loop. Appendix: Appendix is not seen. Intraperitoneal space: Unremarkable. No free air. No significant fluid collection. Vasculature: Unremarkable. No abdominal aortic aneurysm. Lymph nodes: Unremarkable. No enlarged lymph nodes. Urinary bladder: Air density in the nondependent portion of the bladder. Reproductive: Unremarkable as visualized. Bones/joints: Unremarkable. No acute fracture. Soft tissues: Left flank subcutaneous stranding changes. CT/CT chest abdpel w/*[id number] IMPRESSION: No acute thoracic finding. IMPRESSION: 1. No acute abdominal solid organ injury. 2. Left flank subcutaneous stranding changes. ? Soft tissue injury ? 3. Air density in the nondependent portion of the bladder. Finding is nonspecific.? recent instrumentation ?.
[2025-02-12] MEDS: sodium chloride 0.9% 1,000 ML 999 ML IV ×2 (11:41→11:46)
[2025-02-12] MEDS: cefepime 2,000 mg SDV 2000 MG IVP ×2 (11:41→18:40)
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
[2025-02-12] MEDS: iohexol 350 mg/mL 500 mL Btl (per mL) IV (11:59)
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
--- NOTE | 2025-02-12 12:00 | PC.NURSE ---
spoke with KENROY Solis at [facility] to give patient update.
--- NOTE | 2025-02-12 12:22 | PC.NURSE ---
Called [facility] for tube feeding schedule. Irma looked at chart and noted patient takes 250mL of Jevity 1.5cal at 0900,1200, and, 1600 then 370ml at 0000; with 60mL H2O flushes before and after feeds.
[2025-02-12] MEDS: acetaminophen 1,000 MG/100 ML PIGGYBACK 400 MG IV (12:55)
[2025-02-12] MEDS: linezolid premix 600 MG/300 ML PREMIX 300 MG IV (12:59)
[2025-02-12 13:24] LABS: Lactic Acid level (Lactate) 3.6 mmol/L (0.5-2.2)
[2025-02-12] MEDS: enoxaparin 40 mg/0.4 mL Syringe SUBCUT (15:11)
[2025-02-12] MEDS: acetaminophen 500 mg Tablet 1000 MG PO (19:15)
[2025-02-13] VITALS: BP 103/88; PULSE 102; RESP 20; TEMP 38.4; O2SAT 94
[2025-02-13] MEDS: linezolid premix 600 MG/300 ML PREMIX 300 MG IV ×2 (00:21→12:14)
[2025-02-13] MEDS: acetaminophen 500 mg Tablet 1000 MG PO ×2 (02:13→17:56)
[2025-02-13] MEDS: cefepime 2,000 mg SDV 2000 MG IVP ×3 (03:35→20:05)
[2025-02-13 04:00] VITALS: BP 143/77; PULSE 96; RESP 19; TEMP 37.1; O2SAT 96
[2025-02-13 04:03] LABS: Basophils % 0.2 %; Hematocrit 42.3 % (36-47); Lymphocytes # 1.3 10^3/uL (0.8-4.8); Lymphocytes % 9.1 %; Mean Corpuscular HGB Conc 32.6 g/dL (30-55); Mean Corpuscular Hemoglobin 31.4 pg (27-33); Mean Corpuscular Volume 96.1 fl (85-98); Mean Platelet Volume 11.6 fL (7.4-10.4); Monocytes # 0.6 10^3/uL (0.2-0.9); Monocytes % 3.8 %; Neutrophils % 86.5 %; Nucleated Red Blood Cells % 0 %; Platelet Count 230 10^3/cmm (157-399); Red Cell Distribution Width 12.6 % (12.1-15.1); White Blood Count 14.58 10^3/uL (3.29-11.43)
[2025-02-13 04:30] LABS: Anion Gap 16.3 (5-19); Blood Urea Nitrogen 8 mg/dL (6-20); Calcium 8.5 mg/dL (8.5-10.5); Carbon Dioxide 19 mmol/L (22-29); Chloride 105 mmol/L (98-107); Creatinine Clr Calc Pharmacy 190.1053; Glomerular Filtration Rate 168.3 mL/min (90-130); Glucose 241 mg/dL (65-115); Magnesium 1.8 mg/dL (1.7-2.3); Osmolality Calculated 290 mOsm/kg (285-295); Potassium 3.3 mmol/L (3.5-5.1); Sodium 137 mmol/L (136-145)
--- NOTE | 2025-02-13 06:08 | PC.NURSE ---
This nurse contacted Dr. Miller due to patients potassium being 3.3. Dr. Miller ordered 40MeQ of potassium po one time.
[2025-02-13] MEDS: potassium chloride ER 20 mEq Tablet 40 MEQ PO (06:19)
[2025-02-13 07:38] VITALS: BP 101/68; PULSE 87; RESP 20; TEMP 37.2; O2SAT 97
--- NOTE | 2025-02-13 08:14 | PC.NURSE ---
Notified Dr. Kapoor patient had Potassium this am. Gave orders to discontinue potassium order he put in.
[2025-02-13 08:21] LABS: Estmated Average Glucose 126
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
[2025-02-13] MEDS: HYDROmorphone 0.5 MG/0.5 ML INJ 0.4 MG IVP (09:13)
[2025-02-13] MEDS: ketorolac 30 mg/mL INJ 15 MG IVP (09:15)
[2025-02-13] MEDS: lidocaine 2% viscous 15 ML, aluminum-mag hydrox-simethicon 30 ML, sucralfate oral liq 1 GM PO (09:16)
[2025-02-13] MEDS: pantoprazole 40 mg SDV 80 MG IVP (09:18)
[2025-02-13] MEDS: levETIRAcetam 500 MG/5 ML UDC 750 MG PEG-TUBE ×2 (09:18→17:57)
[2025-02-13 11:17] VITALS: BP 106/63; PULSE 80; RESP 18; TEMP 37.6; O2SAT 95
[2025-02-13] MEDS: enoxaparin 40 mg/0.4 mL Syringe SUBCUT (12:15)
[2025-02-13 15:14] LABS: MRSA PCR OZH (swab) NOT DETECTED (Not Detecte)
[2025-02-13 15:44] VITALS: BP 107/63; PULSE 83; RESP 18; TEMP 37.4; O2SAT 96
--- NOTE | 2025-02-13 16:02 | PC.NURSE ---
Dr. Kapoor gave orders to hold lunch until patient wanted to eat. Patient let mom know when she is hungry. Will allow patient to state when she wants dinner.
[2025-02-13 20:13] VITALS: BP 118/71; PULSE 97; RESP 19; TEMP 36.5; O2SAT 95
[2025-02-13 20:50] LABS: Glucose Point of Care 176 mg/dL (70-110)
[2025-02-14 00:45] VITALS: BP 106/71; PULSE 93; RESP 13; TEMP 36.8; O2SAT 94
[2025-02-14] MEDS: linezolid premix 600 MG/300 ML PREMIX 300 MG IV ×2 (00:57→13:19)
[2025-02-14] MEDS: cefepime 2,000 mg SDV 2000 MG IVP ×3 (03:39→21:41)
[2025-02-14 06:05] VITALS: BP 123/71; PULSE 89; RESP 21; TEMP 36.6; O2SAT 93; BMI 37.5
[2025-02-14 07:05] LABS: Glucose Point of Care 135 mg/dL (70-110)
[2025-02-14 07:13] VITALS: BP 105/70; PULSE 95; RESP 18; TEMP 36.6; O2SAT 96
--- NOTE | 2025-02-14 07:53 | USCV_ITS ---
Pippa Cevallos Age: 49 Gender: F : 1975 Exam Date: 02/14/2025 15:08 Ordering Phys: Tito Kapoor MD Technologist: OSVALDO Exam Location: [facility] [place] Indication: ?Endocarditis BP: 94 / 66 HR: 84 Rhythm: Sinus Technical Quality: Suboptimal MEASUREMENTS (Male / Female) Normal Values 2D ECHO LV Diastolic Diameter PLAX 4.7 cm 4.2 - 5.9 / 3.9 - 5.3 cm IVS Diastolic Thickness 1.1 cm 0.6 - 1.0 / 0.6 - 0.9 cm IVS Systolic Thickness 1.8 cm LVPW Diastolic Thickness 0.8 cm 0.6 - 1.0 / 0.6 - 0.9 cm LVPW Systolic Thickness 1.6 cm LVOT Diameter 2.0 cm LV Ejection Fraction 2D Teich 60.3 % LA Diameter 3.1 cm RA Systolic Volume 4C AL 22.4 ml RA Systolic Volume 4C MOD 21.6 ml LA Sys Volume AL 37.3 cm cubed LA Sys Volume Index AL 17.2 cm cubed/m squared Aorta at Sinotubular Diameter 2.5 cm M-MODE LA Ao Ratio MM 1.4 AV Cusp Separation MM 1.1 cm DOPPLER AV Peak Velocity 107.0 cm/s LVOT Peak Velocity 66.0 cm/s AV Area Cont Eq vti 2.2 cm squared AV Area Cont Eq pk 1.9 cm squared MV Peak Velocity 80.0 cm/s MV Area PHT 5.6 cm squared Mitral E to A Ratio 0.9 TR Peak Velocity 177.0 cm/s TR Peak Gradient 12.5 mmHg TV Peak E Velocity 76.0 cm/s PV Peak Velocity 72.0 cm/s FINDINGS Left Ventricle Technically limited quality echocardiogram because of poor ultrasonic windows. LV systolic function is normal with EF 55- 60% Right Ventricle Normal in size and function Right Atrium Normal in size Left Atrium Normal in size Mitral Valve Not well visualized Aortic Valve Not well visualized Tricuspid Valve Not well visualized Pulmonic Valve Not well visualized Pericardium Grossly normal Aorta Normal in size IVC Not visualized CONCLUSIONS Technically very limited quality echocardiogram because of poor ultrasonic windows. Valvular structures are not well- visualized. LV systolic function is normal with EF of 55- 60% Mac Nixon MD (Electronically Signed) Final Date: 16 February 2025 08:05 S
[2025-02-14] MEDS: levETIRAcetam 500 MG/5 ML UDC 750 MG PEG-TUBE ×2 (09:14→17:55)
[2025-02-14] MEDS: lidocaine 2% viscous 15 ML, aluminum-mag hydrox-simethicon 30 ML, sucralfate oral liq 1 GM PO (09:16)
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
[2025-02-14 10:55] LABS: Basophils % 0.4 %; Eosinophils # 0.1 10^3/uL (0.0-0.8); Hematocrit 43.3 % (36-47); Mean Corpuscular HGB Conc 32.6 g/dL (30-55); Mean Corpuscular Hemoglobin 31.6 pg (27-33); Mean Corpuscular Volume 97.1 fl (85-98); Mean Platelet Volume 11.3 fL (7.4-10.4); Monocytes # 0.4 10^3/uL (0.2-0.9); Monocytes % 6.1 %; Neutrophils # 4.34 10^3/uL (1.8-7.7); Neutrophils % 63.2 %; Nucleated Red Blood Cells % 0 %; Platelet Count 217 10^3/cmm (157-399); Red Blood Count 4.46 10^6/uL (3.85-5.65); Red Cell Distribution Width 12.6 % (12.1-15.1); White Blood Count 6.87 10^3/uL (3.29-11.43)
--- NOTE | 2025-02-14 11:03 | PC.CHAP ---
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 material handling technician visit [] Patient/Family/Request visit [] Outpatient visit [] Follow-up visit [] Physician referral [] Code/Alert [x] Routine visit [] Staff referral [] Actively dying [x] Patient sleeping [] Family support [] [] Out of room [] Palliative care [] [] Receiving care in room [] Pre-surgical visit [] Trauma [] Long length of stay [] ICU visit [] Other: Relational/Emotional Strength [] Patient feels connected with others/family/visitors/staff [] Distress [] Loneliness/isolation [] Abandonment Spirituality of Patient [] Person of Yissel [] Attends Mu-Ism of their Yissel [] Believes in Prayer [] Reads Bible or Yazidism materials [] There are Spiritual issues to be addressed Commiss[employer] Steward Interventions [x] Prayer [] Active listening [] Non-anxious presence [] Spiritual/emotional support [] Crisis/trauma care [] Spiritual counseling [] Bereavement support [] Provided bereavement packet [] Provided Bible/devotional materials [] Provided toy/stuffed animal, coloring book to patient or family member [] Provided Communion [] Anointing/[place] [] Salvation [] Completed spiritual assessment [] Other: Impact on Illness or Injury [] Angry [] Fearful [] Anxious [] Often cries [] Exhaustion [] Unable to work [] Unable to attend sabianist [] Unable to walk/stand [] Unable to read [] Unable to drive [] Unable to eat/drink [] Unable to sleep [] Unable to be with family [] Patient intubated [] Other: Summary Time spent with patient
[2025-02-14 11:10] LABS: Alanine Aminotransferase 24 U/L (0-33); Alkaline Phosphatase 66 U/L (35-105); Anion Gap 16.8 (5-19); Aspartate Amino Transferase 17 U/L (0-32); Blood Urea Nitrogen 7 mg/dL (6-20); Calcium 8.8 mg/dL (8.5-10.5); Carbon Dioxide 20 mmol/L (22-29); Chloride 105 mmol/L (98-107); Creatinine Clr Calc Pharmacy 254.1098; Globulin 3.5 g/dL (1.3-4.6); Glomerular Filtration Rate 234.5 mL/min (90-130); Glucose 198 mg/dL (65-115); Magnesium 2.3 mg/dL (1.7-2.3); Osmolality Calculated 290 mOsm/kg (285-295); Phosphorus 1.9 mg/dL (2.5-4.5); Potassium 3.8 mmol/L (3.5-5.1); Sodium 138 mmol/L (136-145); Total Bilirubin 0.3 mg/dL (0.15-1.2); Total Protein 6.5 g/dL (6.6-8.7)
[2025-02-14 11:14] LABS: Glucose Point of Care 178 mg/dL (70-110)
[2025-02-14 11:32] VITALS: BP 94/66; PULSE 85; RESP 18; TEMP 37.3; O2SAT 92
--- NOTE | 2025-02-14 12:40 | PC.NUTR ---
Consult received for PEG TF recommendations. Per nurse at [facility], Pt had bolus feeds with FWF of 60mls before/after per following regimen: 240mls in am 240mls @noon 240mls @ 4pm 360mls @midnight
[2025-02-14] MEDS: enoxaparin 40 mg/0.4 mL Syringe SUBCUT (13:20)
[2025-02-14 16:14] VITALS: BP 101/70; PULSE 90; RESP 19; TEMP 37.1; O2SAT 96
[2025-02-14 16:57] LABS: Glucose Point of Care 170 mg/dL (70-110)
--- NOTE | 2025-02-14 18:11 | PC.NURSE ---
pt fed via feeding 3x. no residual
[2025-02-14 20:00] VITALS: BP 116/80; PULSE 87; RESP 19; TEMP 36.8; O2SAT 97
[2025-02-14 21:22] LABS: Glucose Point of Care 142 mg/dL (70-110)
[2025-02-15] VITALS (7 sets, daily range): BP systolic 109–143; BP diastolic 63–81; PULSE 77–103; RESP 16–21; TEMP 36.6–37.1; O2SAT 94–98; BMI 37.5
[2025-02-15] MEDS: linezolid premix 600 MG/300 ML PREMIX 300 MG IV ×2 (01:09→12:08)
[2025-02-15] MEDS: ondansetron 2 mg/ML SDV 2 mL 4 MG IVP (01:42)
[2025-02-15] MEDS: cefepime 2,000 mg SDV 2000 MG IVP ×3 (04:27→21:05)
[2025-02-15 05:31] LABS: Basophils % 0.6 %; Eosinophils # 0.1 10^3/uL (0.0-0.8); Eosinophils % 2.1 %; Hematocrit 41.5 % (36-47); Lymphocytes # 3.1 10^3/uL (0.8-4.8); Mean Corpuscular HGB Conc 33.3 g/dL (30-55); Mean Corpuscular Hemoglobin 31.7 pg (27-33); Mean Corpuscular Volume 95.2 fl (85-98); Mean Platelet Volume 11.1 fL (7.4-10.4); Monocytes # 0.6 10^3/uL (0.2-0.9); Monocytes % 8.3 %; Neutrophils # 2.88 10^3/uL (1.8-7.7); Neutrophils % 42.7 %; Nucleated Red Blood Cells % 0 %; Platelet Count 252 10^3/cmm (157-399); Red Blood Count 4.36 10^6/uL (3.85-5.65); Red Cell Distribution Width 12.5 % (12.1-15.1); White Blood Count 6.74 10^3/uL (3.29-11.43)
[2025-02-15 05:50] LABS: Alanine Aminotransferase 23 U/L (0-33); Albumin Level 3.3 g/dL (3.5-5.2); Alkaline Phosphatase 62 U/L (35-105); Anion Gap 15.9 (5-19); Aspartate Amino Transferase 14 U/L (0-32); Blood Urea Nitrogen 7 mg/dL (6-20); Carbon Dioxide 22 mmol/L (22-29); Chloride 106 mmol/L (98-107); Creatinine Clr Calc Pharmacy 254.1098; Globulin 3.3 g/dL (1.3-4.6); Glomerular Filtration Rate 234.5 mL/min (90-130); Glucose 128 mg/dL (65-115); Magnesium 2.3 mg/dL (1.7-2.3); Osmolality Calculated 290 mOsm/kg (285-295); Phosphorus 2.3 mg/dL (2.5-4.5); Potassium 3.9 mmol/L (3.5-5.1); Sodium 140 mmol/L (136-145); Total Bilirubin 0.3 mg/dL (0.15-1.2); Total Protein 6.6 g/dL (6.6-8.7)
[2025-02-15 06:29] LABS: Glucose Point of Care 120 mg/dL (70-110)
--- NOTE | 2025-02-15 08:26 | PC.CHAP ---
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 operator visit [] Patient/Family/Request visit [] Outpatient visit [] Follow-up visit [] Physician referral [] Code/Alert [] Routine visit [] Staff referral [] Actively dying [x] Patient sleeping [] Family support [] [] Out of room [] Palliative care [] [] Receiving care in room [] Pre-surgical visit [] Trauma [] Long length of stay [] ICU visit [] Other: Relational/Emotional Strength [] Patient feels connected with others/family/visitors/staff [] Distress [] Loneliness/isolation [] Abandonment Spirituality of Patient [] Person of Yissel [] Attends Evangelical of their Yissel [] Believes in Prayer [] Reads Bible or Yazidi materials [] There are Spiritual issues to be addressed Naturopathic Physician Interventions [] Prayer [] Active listening [] Non-anxious presence [] Spiritual/emotional support [] Crisis/trauma care [] Spiritual counseling [] Bereavement support [] Provided bereavement packet [] Provided Bible/devotional materials [] Provided toy/stuffed animal, coloring book to patient or family member [] Provided Communion [] Anointing/[place] [] Salvation [] Completed spiritual assessment [] Other: Impact on Illness or Injury [] Angry [] Fearful [] Anxious [] Often cries [] Exhaustion [] Unable to work [] Unable to attend holiness [] Unable to walk/stand [] Unable to read [] Unable to drive [] Unable to eat/drink [] Unable to sleep [] Unable to be with family [] Patient intubated [] Other: Summary Time spent with patient
[2025-02-15] MEDS: levETIRAcetam 500 MG/5 ML UDC 750 MG PEG-TUBE ×2 (08:57→17:07)
[2025-02-15 11:32] LABS: Glucose Point of Care 164 mg/dL (70-110)
[2025-02-15] MEDS: enoxaparin 40 mg/0.4 mL Syringe SUBCUT (12:09)
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
[2025-02-15 16:35] LABS: Glucose Point of Care 107 mg/dL (70-110)
[2025-02-15 20:12] LABS: Glucose Point of Care 127 mg/dL (70-110)
[2025-02-15] MEDS: acetaminophen 500 mg Tablet 1000 MG PO (21:10)
[2025-02-16] VITALS (7 sets, daily range): BP systolic 103–131; BP diastolic 68–81; PULSE 75–89; RESP 16–18; TEMP 36.7–37.2; O2SAT 95–96; BMI 37.5
[2025-02-16] MEDS: linezolid premix 600 MG/300 ML PREMIX 300 MG IV (00:30)
[2025-02-16] MEDS: cefepime 2,000 mg SDV 2000 MG IVP (04:43)
[2025-02-16 05:13] LABS: Basophils % 0.6 %; Eosinophils # 0.2 10^3/uL (0.0-0.8); Eosinophils % 2.6 %; Hematocrit 42.8 % (36-47); Lymphocytes # 3.2 10^3/uL (0.8-4.8); Lymphocytes % 49.8 %; Mean Corpuscular HGB Conc 32.5 g/dL (30-55); Mean Corpuscular Hemoglobin 31.4 pg (27-33); Mean Corpuscular Volume 96.6 fl (85-98); Mean Platelet Volume 11.1 fL (7.4-10.4); Monocytes # 0.6 10^3/uL (0.2-0.9); Monocytes % 8.9 %; Neutrophils # 2.41 10^3/uL (1.8-7.7); Neutrophils % 37.5 %; Nucleated Red Blood Cells % 0 %; Platelet Count 273 10^3/cmm (157-399); Red Blood Count 4.43 10^6/uL (3.85-5.65); Red Cell Distribution Width 12.5 % (12.1-15.1); White Blood Count 6.44 10^3/uL (3.29-11.43)
[2025-02-16 05:31] LABS: Blood Urea Nitrogen 11 mg/dL (6-20); Calcium 9.1 mg/dL (8.5-10.5); Carbon Dioxide 22 mmol/L (22-29); Chloride 104 mmol/L (98-107); Creatinine Clr Calc Pharmacy 254.1098; Glomerular Filtration Rate 234.5 mL/min (90-130); Glucose 121 mg/dL (65-115); Osmolality Calculated 289 mOsm/kg (285-295); Sodium 139 mmol/L (136-145)
[2025-02-16 06:30] LABS: Glucose Point of Care 130 mg/dL (70-110)
[2025-02-16] MEDS: levETIRAcetam 500 MG/5 ML UDC 750 MG PEG-TUBE ×2 (08:14→16:12)
--- NOTE | 2025-02-16 09:08 | PC.CHAP ---
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 rock splitter visit [] Patient/Family/Request visit [] Outpatient visit [] Follow-up visit [] Physician referral [] Code/Alert [x] Routine visit [] Staff referral [] Actively dying [] Patient sleeping [x] Family support [] [] Out of room [] Palliative care [] [] Receiving care in room [] Pre-surgical visit [] Trauma [] Long length of stay [] ICU visit [] Other: Relational/Emotional Strength [x] Patient feels connected with others/family/visitors/staff [] Distress [] Loneliness/isolation [] Abandonment Spirituality of Patient [x] Person of Yissel [] Attends Orthodoxy of their Yissel [x] Believes in Prayer [] Reads Bible or Jew materials [] There are Spiritual issues to be addressed Snapper On Interventions [x] Prayer [x] Active listening [x] Non-anxious presence [x] Spiritual/emotional support [] Crisis/trauma care [] Spiritual counseling [] Bereavement support [] Provided bereavement packet [] Provided Bible/devotional materials [] Provided toy/stuffed animal, coloring book to patient or family member [] Provided Communion [] Anointing/[place] [] Salvation [x] Completed spiritual assessment [] Other: Impact on Illness or Injury [] Angry [] Fearful [] Anxious [] Often cries [] Exhaustion [] Unable to work [] Unable to attend zoroastrianism [] Unable to walk/stand [] Unable to read [] Unable to drive [] Unable to eat/drink [] Unable to sleep [] Unable to be with family [] Patient intubated [] Other: Summary Time spent with patient 10 min
[2025-02-16] MEDS: lidocaine 2% viscous 15 ML, aluminum-mag hydrox-simethicon 30 ML, sucralfate oral liq 1 GM PO (10:57)
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
[2025-02-16 11:11] LABS: Glucose Point of Care 157 mg/dL (70-110)
--- NOTE | 2025-02-16 11:50 | PC.NURSE ---
Report called to JAMAL Nails at [facility]
[2025-02-16] MEDS: enoxaparin 40 mg/0.4 mL Syringe SUBCUT (13:43)
[2025-02-16 16:22] LABS: Glucose Point of Care 91 mg/dL (70-110)
== END 2025-02-16 20:20 | disposition skilled nursing facility (03) | DRG 871 ==
LOC: ER 12:00 → MEDSURG 12:16
PROVIDERS: Admitting Provider Internal Medicine; Emergency Provider Emergency Medicine; PCP Internal Medicine; Visit Provider Internal Medicine
DX: A41.9 Sepsis, unspecified organism (principal); G82.50 Quadriplegia, unspecified; N39.0 Urinary tract infection, site not specified; E87.20 Acidosis, unspecified; L03.116 Cellulitis of left lower limb; Z66 Do not resuscitate; F32.A Depression, unspecified; R10.9 Unspecified abdominal pain; R33.9 Retention of urine, unspecified; S31.809A Unspecified open wound of unspecified buttock, initial encounter; L89.159 Pressure ulcer of sacral region, unspecified stage; R73.9 Hyperglycemia, unspecified; E87.6 Hypokalemia; Z74.01 Bed confinement status; Z79.899 Other long term (current) drug therapy; Z79.890 Hormone replacement therapy; Z88.2 Allergy status to sulfonamides; Z87.440 Personal history of urinary (tract) infections; Z86.19 Personal history of other infectious and parasitic diseases; Z86.14 Personal history of Methicillin resistant Staphylococcus aureus infection; Z87.820 Personal history of traumatic brain injury; Z11.52 Encounter for screening for COVID-19; Z93.0 Tracheostomy status
CPT/HCPCS: 36415; 36416; 36600; 51702; 71045; 71260; 74177; 80048; 80051; 80053; 81001; 82330; 82805; 82962; 83036; 83605; 83735; 84100; 84145; 85025; 85651; 86140; 87040; 87077; 87086; 87150; 87186; 87205; 87637; 93306; 96365; 96372; 96375; 99285; J0131; J0692; J1171; J1650; J1885; J2020; J2405; J2470; J7030; J9999

== ENCOUNTER 2025-06-09 17:55 | Inpatient (IN) | payer MEDICAID, SELFPAY ==
--- OUTSIDE RECORDS SUMMARY | 2019-12-21 19:00 | XMS_ITS | Continuity of Care Document ---
Author Organization [facility] Address [address] [place] [phone] Phone Care Team Providers Care Refuse Driver Name Role Phone Unavailable Unavailable Unavailable Procedures Procedure Date [facility] C ALL INTRAOR COMPLETE SERIES CHILD PROPHY 0-12 FULL MOUTH DEBRIDEMENT POST 2 [facility] RESINBASED CMPST RESIN 4/> SURF OR W INCIS AN RESIN 4/> SURF OR W INCIS AN POST 1 [facility] RESINBASED CMPST SIMPLE EXTRACTION COMPREHENSVE ORAL EVALUATION ADULT PROPHY 13 + DENTAL CONSULTATION Advance Directives Directive Yes / No Effective Date File Name No Information Encounters Encounter Description Practice Location Reason(s) For Visit Diagnoses Date Provider Providers Copied on Encounter [facility], [address] [place] [address], [id number], [place] tel:[phone] PSYCHIATRIC Contracted Dental No Information 0 No Information [facility], [address] [place] [address], [id number], [place] tel:[phone] PSYCHIATRIC Contracted Dental No Information 0 No Information Family History Family Member Type Diagnosis Age At Onset No Information Payers Payer name Insurance type Covered constitution party ID Authoriza tion(s) No Information Social History Type Description Quantity Date Captured Comments Sex Female Smoking Status No Information Sexual Orientation Don't Know Gender Identity Female Chief Complaint And Reason For Visit No Information Reason For Referral Reason For Referral No Information History Of Present Illness Encounter Date Complaint History Of Prese nt Illness No Information Functional Status Date Functional Assessmen t No Information Instructions Date Instruction Additional Infor mation No Information Assessments Type Assessment Date No Information Patient Care Teams Name Effective Dates (start - stop) Status Members No Information
--- OUTSIDE RECORDS SUMMARY | 2025-02-28 15:22 | XMS_ITS | Continuity of Care Document ---
Author Organization [address] [place] [address] Address [address] [facility] [address] [place] [address] Phone Care Team Providers Care Civil Preparedness Training Officer Name Role Phone Nicki Willie BLAIR Unavailable Unavailable Allergies, Adverse Reactions, Alerts Substance Reaction Status Criticality Sulfa (Sulfonamide Antibiotics) Active No Information morphine Active No Information Medications Medication Instructions Dosage Effective Dates (start - stop) Status Comments levetiracetam 100 mg/mL oral solution take 5 milliliter by oral route 2 times every day 500 MG - Active Depo-Provera 150 mg/mL intramuscular suspension inject 1 milliliter by intramuscular route every 3 months 150 MG - Active dantrolene 25 mg capsule take 1 capsule by oral route 2 times every day 25 MG - Active atorvastatin 80 mg tablet take 1 tablet by oral route every day 80 MG - Active Problems Condition Type Effective Dates (start - stop) Clini nidia Status Comments No Known Problems Procedures Procedure Date DEBRIDE NAIL 6 OR MORE DEBRIDE NAIL 6 OR MORE Non Surgical Cerumen Removal DEBRIDE NAIL 1-5 Trim Dystrophic nail(s) Prophylaxis - Adult Topical Application Of Fluoride Varnish Oral Hygiene Instructions COMPRE OPH EXAM EST PT 1/> REMOVAL OF NAIL PLATE Vision svcs frames purchases Lens spher single plano 4.00 EYE EXAM NEW PATIENT TRIM SKIN LESIONS 2 TO 4 DEBRIDE NAIL 6 OR MORE Prophylaxis - Adult Topical Application Of Fluoride Varnish Oral Hygiene Instructions Compsve Oral Eval- New/Est Pat Oral Hygiene Instructions DEBRIDE NAIL 1-5 TRIM NAIL(S) 1ST NF CARE SF/LOW MDM 25 Advance Directives Directive Yes / No Effective Date File Name No Information Encounters Encounter Description Practice Location Reason(s) For Visit Diagnoses Date Provider Providers Copied on Encounter [address] [place] [address], [id number], [place] tel:[phone] [place] [address] No Information 5 BRANDY Guardado. [address] [place] [address], [place], [place], [id number], tel:[phone] [place] [address] Tinea unguiVasileeripher al vascular disease, unspecified 5 BRANDY Guardado. Referring Provider: Nestor Kim. [address] [place] [address], [place], [place], [id number], [place] tel:[phone] [place] [address] Tinea unguiumPeripher al vascular disease, unspecified 4 BRANDY Guardado. Referring Provider: Nestor Kim. [address] [place] [address], [place], [place], [id number], [place] tel:[phone] [facility] Impacted cerumen, bilateral 4 BRANDY Maza. Referring Provider: Nestor Kim. [address] [place] [address], [place], [place], [id number], [place] tel:[phone] [facility] Onychogryphosis Nail dystrophyPeriph eral vascular disease, unspecified 4 BRANDY Chen. Referring Provider: Nestor Kim. [address] [place], [place] [address], [place], [place], [id number], [place] tel:[phone] [facility] Encounter for dental examination and cleaning without abnormal findings 4 BRANDY Saldana. Referring Provider: Nestor Kim. [address] [place] [address], [address] [facility], [place], [place], [id number], [place] tel:[phone] [place] [address] Decreased vision (chief complaint) Age-related nuclear cataract, bilateral 4 Kota Baez. [address], [place], [place], [id number], [place]. tel:[phone] [place] [address], [address] [place] [address], [place], [place], [id number], [place] tel:[phone] [place] [address] Ingrowing nail 3 BRANDY Chen. Referring Provider: Nestor Kim. [address] [place] [address], [address] [facility], [place], [place], [id number], [place] tel:[phone] [place] [address] Presbyopia 3 Kota Baez. [address], [place], [place], [id number], [place]. tel:[phone] [place] [address], [address] [facility], [place], [place], [id number], [place] tel:[phone] [place] [address] Decreased vision (chief complaint) Age-related nuclear cataract, bilateral 3 Kota Baez. [address], [place], [place], [id number], [place]. tel:[phone] Referring Provider: Nestor Kim. [address] [place] [address], [address] [facility], [place], [place], [id number], [place] tel:[phone] [facility] Peripheral vascular disease, unspecifiedOnyc hogryphosisCorn s and callosities 3 BRANDY Chen. Referring Provider: Nestor Kim. [address] [place] [address], [address] [facility], [place], [place], [id number], [place] tel:[phone] [facility] Encounter for dental examination and cleaning without abnormal findings 3 BRANDY Saldana. Referring Provider: Nestor Kim. [address] [place] [address], [address] [facility] [address], [place], [place], [id number], [place] tel:[phone] [facility] Encounter for dental examination and cleaning without abnormal findings 3 Malaika So. [address] [facility], [address], [place], [place], [id number], [place]. tel:[phone] Referring Provider: Nestor Kim. [facility] CARE SF/LOW MDM [address] [place] [address], [address] [facility], [place], [place], [id number], [place] tel:[phone] [place] [address] Onychogryphosis Nail dystrophyPeriph eral vascular disease, unspecifiedOnyc holysisContusio n of left lesser toe(s) with damage to nail, sequela 3 Maurisio Esqueda. [address] [facility], [address], [place], [place], [id number], [place]. tel:[phone] Referring Provider: Nestor Kim. [address] [place] [address], [address] [facility], [place], [place], [id number], [place] tel:[phone] [place] [address] No Information 3 Maurisio Esqueda. [address] [facility], [address], [place], [place], [id number], [place]. tel:[phone] Family History Family Member Type Diagnosis Age At Onset No Information Payers Payer name Insurance type Covered alliance party ID Authoriza tion(s) Medicaid [facility] [id number] Social History Type Description Quantity Date Captured Comments Sex Female Smoking Status No Information Chief Complaint And Reason For Visit No Information Reason For Referral Reason For Referral No Information Plan Of Treatment Date Type Action Status Appointment Williams, Mandy Medicaid Onl y. BOOKED Appointment Pippa Cevallos Medicaid Onl y. BOOKED Appointment Pippa Cevallos BOOKED Patient Education Learning About Dental Care and Your Health Problem completed Patient Education Learning About Dental Care and Your Health Problem completed Patient Education Dental X-Ray: About Thi s Test completed History Of Present Illness Encounter Date Complaint History Of Prese nt Illness Decreased vision The 48 year old patient presents for evaluation of Decreased vision in the right eye and left eye. It occurs all the time. It affects both near and far vision. The condition is moderate. Patient denies: eye pain. Decreased vision The 47 year old patient presents for evaluation of Decreased vision in the right > left. It occurs all the time. It affects both near and far vision. The condition is moderate. Patient denies: eye pain. Patient is unable to speak but she is able to communicate by shaking her head. Functional Status Date Functional Assessmen t No Information Instructions Date Instruction Additional Infor denzel All documented thick ened nails were debrided using a rotary tool and nail nipper. Related to Tinea unguium This is a chronic stable problem . Related to Peripheral vascular disease, unspecified All documented thick ened nails were debrided using a rotary tool and nail nipper. Related to Tinea unguium This is a chronic stable problem . Related to Peripheral vascular disease, unspecified All dystrophic and/o r mycotic nails as described were debrided in thickness as needed to prevent pain and other symptoms. Concave 6 inch myotic nail nipper used to debulk nails and emery board used to file smooth. Related to Onychogryphosis I will follow up in 2-3 months for continued at risk foot care, PVD. Comprehensive foot exam was performed today. Pt was educated on etiology and risk factors for PVD. Reviewed need for proper hygiene, do not go barefooted. Inspect feet regularly for signs of skin breakdown. Related to Peripheral vascular disease, unspecified All of the remaining dystrophic nails as described were trimmed in length as needed. Nails were trimmed using a double action hinged nail nipper, concave jaw. Related to Nail dystrophy We will schedule a f ollow up appointment in 6-9 months for a dilated fundus exam. Related to Age-related nuclear cataract, bilateral Impression/Plan - Ca taracts are mild; we will monitor for progression. Related to Age-related nuclear cataract, bilateral Follow up - We will schedule a follow up appointment in 6-9 months for a dilated fundus exam. Related to Age-related nuclear cataract, bilateral Patient has recurren t ingrown nail. Discussed prevention strategies with patient and/or caregiver including nail debridement, soaks, topical antibiotics, gauze and pressure relief techniques- bed pillows, padding of toes. Surgical removal, slant back cutting of offending wedge was provided using Macedonian Anvil tool. Dry Dressing was applied. Related to Ingrowing nail We will schedule a f ollow up appointment in 6-9 months for a dilated fundus exam. At the request of resident, glasses order will be sent to insurance for review. Related to Age-related nuclear cataract, bilateral Impression/Plan - Ca taracts are mild; we will monitor for progression. Related to Age-related nuclear cataract, bilateral Follow up - We will schedule a follow up appointment in 6-9 months for a dilated fundus exam. At the request of resident, glasses order will be sent to insurance for review. Related to Age-related nuclear cataract, bilateral I will follow up in 2-3 months for continued at risk foot care, PVD. Comprehensive foot exam was performed today. Pt was educated on etiology and risk factors for PVD. Reviewed need for proper hygiene, do not go barefooted. Inspect feet regularly for signs of skin breakdown. Related to Peripheral vascular disease, unspecified . All dystrophic and /or mycotic nails as described were debrided in thickness as needed to prevent pain and other symptoms. Concave 6 inch myotic nail nipper used to debulk nails and emery board used to file smooth. Related to Onychogryphosis All of the multiple callouses as described (2-4) were debrided/pared to prevent further tissue breakdown and pain. A sterile 15 blade and scalpel were used. Padding to offload encouraged. Related to Corns and callosities All of the painful o r problematic thickened or mycotic nails as described were debrided in both length and thickness as needed using aseptic technique to an appropriate level utilizing both manual and electric debridement in order to treat and prevent pain ,pathology and related complications. The patient tolerated the procedure well. Related to Onychogryphosis All assessed dystrop hic nails were reduced in length thickness and incurvation as needed to treat and prevent pain, pathology, related complication and other symptoms via manual and electronic debridement utilizing aseptic teechnique. Patient tolerated the procedure well. Related to Nail dystrophy the sequela of the p ostraumatic hematoma were evaluated as per excision of the residual lysis, and excavation of blood remnants and managed accordingly so as to prevent further trauma and to then assess in order differentiate the condition from a subungual melanotic pigmented lesion. Related to Contusion of left lesser toe(s) with damage to nail, sequela Assessments Type Assessment Date No Information Patient Care Teams Name Effective Dates (start - stop) Status Members No Information
[2025-06-09] VITALS (7 sets, daily range): BP systolic 112–142; BP diastolic 64–78; PULSE 116–129; RESP 18; TEMP 38.5; O2SAT 92–96
--- NOTE | 2025-06-09 18:44 | XRR_ITS ---
PROCEDURE INFORMATION: Exam: XR Chest Exam date and time: 06/09/2025 6:52 PM Age: 49 years old Clinical indication: Other: Possible sepsis TECHNIQUE: Imaging protocol: Radiologic exam of the chest. Views: 1 view. COMPARISON: CT chest abdpel w/*[id number] 02/12/2025 11:56 AM FINDINGS: Lungs: Low lung volumes, vascular crowding could be seen with mild edema although likely due to low lung volumes. Otherwise Unremarkable. No consolidation. Pleural spaces: Unremarkable. No pleural effusion. No pneumothorax. Heart/Mediastinum: Unremarkable. No cardiomegaly. Bones/joints: Unremarkable. Clips in the right upper quadrant of the abdomen, likely cholecystectomy. XR/XR chest 1V portable [id number] IMPRESSION: No acute findings.
--- NOTE | 2025-06-09 18:45 | ECG_ITS ---
[employer] Test Date: 2025-06-09 Pat Name: Pippa Cevallos Department: Room: Gender: Female Aged Or Disabled Care Worker: : 1975 Requested By: Ronald Reynolds Order Number: [id number] Luis Garcia MD: Isidra Pitts M.D. Measurements Intervals [place] Rate: 126 P: 28 [place]: 129 QRS: -24 QRSD: 76 T: 107 QT: 335 QTc: 486 Interpretive Statements SINUS TACHYCARDIA POSSIBLE ANTERIOR MYOCARDIAL INFARCTION , PROBABLY OLD [30 ms Q WAVE IN V3/V4, OR R < 0.2 mV IN V4] ABNORMAL RHYTHM ECG Compared to ECG 06/12/2015 15:57:15 Myocardial infarct finding now present Short [place] interval no longer present Electronically Signed On 06-10-2025 14:02:07 CDT by Isidra Pitts M.D. [id number] [id number]
--- OUTSIDE RECORDS SUMMARY | 2025-06-09 18:55 | XMS_ITS | Encounter Summary ---
Author Organization [facility] Address [address] [place] [address] Care Team Providers Care Hospital Liaison Name Role Phone Rashad Locke DO Primary Care Provider Unavaila ble Encounter Details Date Type Department Care Team (Late st Contact Info) Description 10/03/2016 Ancillary Orders [facility] CT Scan [place] [address] [place] [address] Rashad Locke DO NO ADDRESS ON FILE Social History Tobacco Use Types Packs/Day Years Used Date Smoking Tobacco: Never Smokeless Tobacco: Former Alcohol Use Standard Drinks/Week Comments No 0 (1 standard drink = 0.6 oz pur e alcohol) Comments No Sex and Gender Information Value Date Recorded Sex Assigned at Not on file 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 Gender Identity Not on file Sexual Orientation Not on file Occupation Industry Job Start Date Job End Date Not on file Not on file Not on file Not on file documented as of this encounter Plan of Treatment Not on file documented as of this encounter Visit Diagnoses Not on filedocumented in this encounter Additional Health Concerns Infection Onset Date Last Indicated Resolved Time 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
--- OUTSIDE RECORDS SUMMARY | 2025-06-09 18:55 | XMS_ITS | Encounter Summary ---
Author Organization [facility] Address [address] [place] [address] Care Team Providers Care Administrative Services Coordinator Name Role Phone Rashad Locke DO Primary Care Provider Rupaa ble Encounter Details Date Type Department Care Team (Latest Contact Info) Description 08/06/2004 Outpatient Historical [facility]- [address] [address] Nestor Colin, [place] ADDRESS ON FILE FEMALE GENITAL SYMPTOMS NOS (Primary Dx); Pain in limb Social History Tobacco Use Types Packs/Day Years Used Date Smoking Tobacco: Never Assessed Comments Unknown Sex and Gender Information Value Date Recorded Sex Assigned at Not on file 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 Gender Identity Not on file Sexual Orientation Not on file documented as of this encounter Plan of Treatment Not on file documented as of this encounter Visit Diagnoses Diagnosis Unspecified symptom associated with female genital organs- Primary Pain in limb Pain in soft tissues of limb documented in this encounter Additional Health Concerns Infection Onset Date Last Indicated Resolved Time 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
--- OUTSIDE RECORDS SUMMARY | 2025-06-09 18:55 | XMS_ITS | Clinical Summary ---
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 Diagnosis: See Reason for Exam. COMPARISON: None FINDINGS: Percutaneous gastrostomy tube is in place. 30 mL of instilled Gastrografin confirms intraluminal location with contrast opacifying the stomach and duodenum. Jodie Braun MD DIAGNOSTIC IMAGING ORDERABLES F inal Result * CT FEMUR W CONTRAST BILAT (04/29/2025 9:00 PM CDT) Anatomical Region Laterality Modality Lower Extremity Computed Tomogra phy 04/29/2025 8:40 PM CDT Impressions 04/29/2025 10:15 PM CDT IMPRESSION: 1. Partially visualized bilateral hip and thigh soft tissue stranding and overlying cutaneous thickening, most likely representing cellulitis. No underlying focal fluid collection. 2. No acute osseous abnormality. MACRO: None Narrative 04/29/2025 10:15 PM CDT EXAMINATION: CT FEMUR W CONTRAST BILAT CLINICAL HISTORY: ASSOCIATED DIAGNOSIS: Soft tissue infection suspected, thigh, xray done ORDERING PROVIDER: JENNYFER GRUBBS TECHNOLOGISTS NOTE: COMPARISON: None TECHNIQUE: Thin axial images were performed thru the bilateral femurs with IV contrast. Multiplanar reconstructions were obtained from the axial data. Before infusion of intravenous contrast, radiology personnel investigated the possibility of an allergic history and of any history of reaction to iodinated contrast material. INTRA-PROCEDURE MEDS: IOPAMIDOL 61 % INTRAVENOUS SOLUTION (SINGLE USE VIAL) Given:100 mL FINDINGS: Evaluation is limited by photon starvation and streak artifact Soft tissue: The lateral hip and thigh soft tissues are incompletely included within the imaging and there is mild bilateral soft tissue swelling in the lateral hip and thigh soft tissues without underlying focal fluid collection. Overlying mild cutaneous thickening. No significant soft tissue swelling. Mild atrophy of the visualized muscles which appeared Bone/joint: No CT evidence of fracture or suspicious osseous lesion. No dislocation. No significant degenerative change. No joint effusion. Procedure Note Shania Fuentes MD - 04/29/2025 EXAMINATION: CT FEMUR W CONTRAST BILAT CLINICAL HISTORY: ASSOCIATED DIAGNOSIS: Soft tissue infection suspected, thigh, xray done ORDERING PROVIDER: JENNYFER GRUBBS TECHNOLOGISTS NOTE: COMPARISON: None TECHNIQUE: Thin axial images were performed thru the bilateral femurs with IV contrast. Multiplanar reconstructions were obtained from the axial data. Before infusion of intravenous contrast, radiology personnel investigated the possibility of an allergic history and of any history of reaction to iodinated contrast material. INTRA-PROCEDURE MEDS: IOPAMIDOL 61 % INTRAVENOUS SOLUTION (SINGLE USE VIAL) Given:100 mL FINDINGS: Evaluation is limited by photon starvation and streak artifact Soft tissue: The lateral hip and thigh soft tissues are incompletely included within the imaging and there is mild bilateral soft tissue swelling in the lateral hip and thigh soft tissues without underlying focal fluid collection. Overlying mild cutaneous thickening. No significant soft tissue swelling. Mild atrophy of the visualized muscles which appeared Bone/joint: No CT evidence of fracture or suspicious osseous lesion. No dislocation. No significant degenerative change. No joint effusion. IMPRESSION: 1. Partially visualized bilateral hip and thigh soft tissue stranding and overlying cutaneous thickening, most likely representing cellulitis. No underlying focal fluid collection. 2. No acute osseous abnormality. MACRO: None us Jennyfer Grubbs MD CT ORDERABLES Final Result * (ABNORMAL) LACTIC ACID (04/29/2025 6:16 PM CDT) Only the most recent of3 resultswithin the time period is included. LACTIC ACID 2.1(H) <=2.0 mmol/L 04/29/2025 6:38 PM CDT [facility] Blood Venipuncture / Unknown 04/29/2025 6:16 PM CDT 04/29/2025 6:18 PM CDT us Jennyfer Grubbs MD CHEMISTRY ORDERABLES Final Resu lt [facility] CLIA # [id number] [address] [place] [address] * BLOOD CULTURE (04/29/2025 2:56 PM CDT) Only the most recent of2 resultswithin the time period is included. [facility] BLOOD CULTURE No growth 05/05/2025 3:58 PM CDT [facility] Blood (Peripheral) Venipuncture / Unknown 04/29/2025 2:56 PM CDT 04/29/2025 3:04 PM CDT us Jennyfer Grubbs MD MICROBIOLOGY - GENERAL ORDERABL ES Final Result [facility] CLIA # [id number] [address] [address] * (ABNORMAL) MANUAL DIFFERENTIAL (04/29/2025 2:04 PM CDT) [facility] SEGMENTED NEUTROPHILS 85(H) 45 - 70 % 04/29/2025 2:56 PM CDT [facility] LYMPHOCYTES RELATIVE 11(L) 20 - 45 % 04/29/2025 2:56 PM T [facility] MONOCYTES RELATIVE 4 2 - 8 % 04/29/2025 2:56 PM T [facility] NEUTROPHILS ABSOLUTE COUNT 16.58(H) 1.78 - 5.38 K/uL 04/29/2025 2:56 PM CDT [facility] LYMPHOCYTES ABSOLUTE 2.15 1.20 - 4.00 K/uL 04/29/2025 2:56 PM T [facility] MONOCYTES ABSOLUTE 0.78 0.30 - 0.82 K/uL 04/29/2025 2:56 PM T [facility] TOTAL CELLS COUNTED IN DIFF 100 04/29/2025 2:56 PM T [facility] PLATELET EST. Adequate 04/29/2025 2:56 PM T [facility] RBC MORPHOLOGY Normal 04/29/2025 2:56 PM CDT [facility] GIANT PLATELETS Present 2:56 PM CDT [facility] Blood Venipuncture / Unknown 04/29/2025 2:04 PM CDT 04/29/2025 2:22 PM CDT us Jennyfer Grubbs MD HEMATOLOGY ORDERABLES COM Final Result Performing Organization Address [facility]/ZIP Co de Phone Number [facility] CLIA # [id number] [address] [place] [address] * SEDIMENTATION RATE (04/29/2025 2:04 PM CDT) ESR (SEDIMENTATION RATE) 12 0 - 30 mm/Hr 04/29/2025 2:44 PM CDT [facility] Blood Venipuncture / Unknown 04/29/2025 2:04 PM CDT 04/29/2025 2:22 PM CDT Narrative [facility] - 04/29/2025 2:44 PM CDT Tube Lot: #[id number] Exp Date: 08/02/2026 SR 0125-1 EXP. 05/07/25 SR 0125-2 EXP. 05/07/25 Result Glenn Grubbs MD HEMATOLOGY ORDERABLES Final Res ult Performing Organization Address [facility]/ZIP Co de Phone Number [facility] CLIA # [id number] [address] [place] [address] * (ABNORMAL) C-REACTIVE PROTEIN (04/29/2025 2:04 PM CDT) CRP 444.0(H) <5.0 mg/L 04/29/2025 2:58 PM CDT [facility] Blood Venipuncture / Unknown 04/29/2025 2:04 PM CDT 04/29/2025 2:22 PM CDT Result Glenn Grubbs MD CHEMISTRY ORDERABLES Final Resu lt Performing Organization Address [facility]/ZIP Co de Phone Number [facility] CLIA # [id number] [address] [place] [address] * (ABNORMAL) BRAIN NATRIURETIC PEPTIDE, BNP OR PROBNP (04/29/2025 2:04 PM CDT) PROBNP, N TERMINAL 366(H) 0 - 125 pg/mL 04/29/2025 2:45 PM CDT [facility] Comment: INTERPRETIVE COMMENT based on diagnosis: Diagnostic NT pro-BNP cutoffs for Heart Failure in the absence of renal failure is suggested for the following ranges <75 years: <125 pg/mL >=75 years: <450 pg/mL Exclusionary rule out cut-point for Acute Decompensated Heart Failure(ADHF) All ages: <300 pg/mL Diagnostic NT pro-BNP cutoffs for Acute Decompensated Heart Failure(ADHF) in the absence of renal failure is suggested for the following ages <50 years: > 450 pg/mL 50-75 years: > 900 pg/mL >75 years: >1800 pg/mL Blood Venipuncture / Unknown 04/29/2025 2:04 PM CDT 04/29/2025 2:22 PM CDT Jennyfer Grubbs MD CHEMISTRY ORDERABLES Final Resu lt Performing Organization Address [facility]/ZIP Co de Phone Number [facility] CLIA # [id number] [address] [place] [address] * (ABNORMAL) COMPREHENSIVE METABOLIC PANEL (04/29/2025 2:04 PM CDT) SODIUM 138 136 - 145 mmol/L 04/29/2025 2:44 PM CDT [facility] POTASSIUM 4.4 3.5 - 5.1 mmol/L 04/29/2025 2:44 PM CDT [facility] CHLORIDE 99 98 - 107 mmol/L 04/29/2025 2:44 PM CDT [facility] CO2 24 22 - 29 mmol/L 04/29/2025 2:44 PM [facility] CALCIUM 10.1(H) 8.6 - 10.0 mg/dL 04/29/2025 2:44 PM [facility] BUN 12 6 - 20 mg/dL 04/29/2025 2:44 PM [facility] CREATININE 0.49(L) 0.51 - 0.95 mg/dL 04/29/2025 2:44 PM [facility] GLUCOSE 161(H) 74 - 99 mg/dL 04/29/2025 2:44 PM [facility] TOTAL PROTEIN 7.7 6.6 - 8.7 g/dL 04/29/2025 2:44 PM [facility] ALBUMIN 3.8 3.5 - 5.2 g/dL 04/29/2025 2:44 PM [facility] BILIRUBIN TOTAL 0.8 0.0 - 1.2 mg/dL 04/29/2025 2:44 PM [facility] ALKALINE PHOSPHATASE 91 35 - 104 U/L 04/29/2025 2:44 PM [facility] AST 27 0 - 35 U/L 04/29/2025 2:44 PM [facility] ALT 35 0 - 35 U/L 04/29/2025 2:44 PM [facility] GFR >60 >=60 mL/min/1.7 3 sq meter 04/29/2025 2:44 PM [facility] Comment:eGFR calculated with 2020 CKD-EPI equation. Vegetarian diet, extremely high or low muscle mass, and may affect results. Cystatin C with Glomerular Filtration Rate is a suitable alternative for these patients. ANION GAP 15 5 - 20 mmol/L 04/29/2025 2:44 PM [facility] Blood Venipuncture / Unknown 04/29/2025 2:04 PM CDT 04/29/2025 2:22 PM CDT us Jennyfer Grubbs MD CHEMISTRY ORDERABLES Final Resu lt [facility] CLIA # [id number] [address] [place] [address] * CERV/VAG CYTOPATH, THIN PREP AND HPV (05/08/2016 2:46 PM CDT) CASE REPORT Gynecologic Cytology Report Case: [id number] Authorizing Provider: Meaghan Abdi FNP Collected: 05/08/2016 1446 Ordering Location: [facility] Received: 05/13/2016 1446 Services [place] First Screen: Amanda Live Specimen: LB PAP TP AND HPV PROT, Endocervix 05/22/2016 1:07 PM CDT [facility] Specimen Adequacy Satisfactory for evaluation, endocervical/collins sformation zone component absent 05/22/2016 1:07 PM CDT [facility] General Categorization Negative For Intraepithelial Lesion Or Malignancy 05/22/2016 1:07 PM CDT [facility] Interpretation Negative For Intraepithelial Lesion Or Malignancy 05/22/2016 1:07 PM CDT [facility] PHOTOCOMPOSING KEYBOARD OPERATOR Clinical Information Abnormal Bleeding 05/22/2016 1:07 PM CDT [facility] Termination Clerk Clin Hist Comment unknown 05/22/2016 1:07 PM CDT [facility] Termination Clerk Previous Pap Date 05/22/2016 1:07 PM CDT [facility] Termination Clerk Prev Pap Result 05/22/2016 1:07 PM CDT [facility] GynLMP 05/22/2016 1:07 PM CDT [facility] GynLMPcmt Unknown 05/22/2016 1:07 PM CDT [facility] Termination Clerk Educational Note 05/22/2016 1:07 PM CDT [facility] Genital SWAB OF ENDOCERVIX / Unknown 05/08/2016 2:46 PM CDT 05/13/2016 2:46 PM CDT Meaghan CROWLEYP PATHOLOGY/CYTOLOGY CHRISTIANA STRONG Final Result [facility] CLIA# [id number] [address] [place] [address] [facility] CLIA # [id number] [address] [facility] [place] [address] from Last 3 Months or Most Recently Relevant to Health Maintenance Insurance MEDICAID [place] [employer] Medicaid Advance Directives For more information, please contact: [phone] Documents on File Type Date Recorded Patient [address] 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
--- OUTSIDE RECORDS SUMMARY | 2025-06-09 18:55 | XMS_ITS | Clinical Summary ---
Author Organization [facility] Address [address] [place] [address] Care Team Providers Care Inker Name Role Phone Jay Kim MD Primary Care Provider [phone] Allergies Active Allergy Reactions Criticality Noted Date Comments Morphine Unknown 10/08/2022 Sulfa (Sulfonamide Antibiotics) Unknown 04/2022 Medications acetaminophen (TYLENOL) 500 mg tablet Take 1,000 mg by mouth in the morning and 1,000 mg in the evening. Active acetaminophen-co deine (TYLENOL #3) 300-30 mg per tablet Take 2 tablets by mouth every 4 (four) hours as needed for moderate pain. Active bisacodyL (DULCOLAX) 10 mg suppository Insert 10 mg into the rectum daily as needed. Active dantrolene (DANTRIUM) 25 MG capsule Take 25 mg by mouth in the morning. Active medroxyPROGESTER one (DEPO-PROVERA) 150 mg/mL injection Inject 150 mg into the shoulder, thigh, or buttocks every 3 (three) months. Active levETIRAcetam (KEPPRA) ORAL solution Take 7.5 mL by mouth in the morning and 7.5 mL in the evening. Active polyethylene glycol (GLYCOLAX) 17 gram ORAL packet Take 17 g by mouth in the morning. Active mag hydrox/aluminum hyd/simeth (MYLANTA ORAL) Take 30 mL by mouth every 12 (twelve) hours as needed. Active naloxone 2 mg/2 mL syringe kit Inject as directed as needed for opioid reversal. Active famotidine (PEPCID) 20 MG tablet Take 20 mg by mouth in the morning. Active sennosides-docus ate sodium (SENOKOT-S) 8.6-50 mg tablet Take 1 tablet by mouth in the morning and 1 tablet in the evening. Active cetirizine (ZyrTEC) 10 MG tablet Take 10 mg by mouth in the morning. Active Active Problems Problem Noted Date Diagnosed Date Chronic pain 06/25/2024 Presence of externally remov able percutaneous endoscopic gastrostomy (PEG) tube 12/27/2022 Mixed hyperlipidemia 12/27/2022 Chronic rhinitis 12/27/2022 Chronic constipation 12/27/2022 Quadriplegia 01/13/2018 Assessment & Plan (11/01/2022 6:12 PM LINE SERVICE TECHNICIAN): Monitor for skin changes or breakdown Gastroesophageal reflux disease without esophagi tis 09/14/2015 Assessment & Plan (11/01/2022 6:16 PM LINE SERVICE TECHNICIAN): GERD precautions and acid reduction as needed. 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 Review dietary recommendations. Iron deficiency anemia Assessment & Plan (11/01/2022 6:16 PM LINE SERVICE TECHNICIAN): CBC with scheduled labs Resolved Problems Problem Noted Date Diagnosed Date Resolved Date Cellulitis of thigh 04/29/2025 05/13/20 25 Cellulitis of buttock 04/29/20252024 Cellulitis of back 04/29/2025 5 Pneumonitis 01/12/2018 12/27/2023 05/14/2024 Encounters Date Type Department Care Team Description 05/02/2025 Orders Only [facility] Jayne Rucker - Primary Care [address] [place] [address] Jay Kim MD Other chronic pain (Primary Dx) 03/24/2025 Telephone [facility] Jayne Rucker - Primary Care [address] [place] [address] Suha Bolaños LPN from Last 3 Months Immunizations Immunization Administration Dates Next Due Tdap (BOOSTRIX, ADACEL) 02/01/2015 influenza, injectable, quadr ivalent, preservative free (AFLURIA/FLUARIX/FLULAVAL/FLUZONE) 09/22/2023,08/16/2021,08/18/2020,2018 influenza, injectable, triva lent (AFLURIA/FLUZONE MDV) 09/15/2012,08/26/2011 influenza, injectable, triva lent, preservative free (AFLURIA/FLUARIX/FLULAVAL/FLUZONE) 08/21/2018 pneumococcal conjugate PCV 1 3 (PREVNAR 13) 08/21/2018 Social History Tobacco Use Types Packs/Day Years Used Date Smoking Tobacco: Unknown Tobacco Cessation:Counseling Given: Not Answered Alcohol Use Standard Drinks/Week Comments Defer 0 (1 standard drink = 0.6 oz pur e alcohol) PHQ-2 Answer Date Recorded PHQ-2 Score 0 11/16/2024 Comments Unknown Sex and Gender Information Value Date Recorded Sex Assigned at Not on file Legal Sex Female 9:48 AM LINE SERVICE TECHNICIAN Gender Identity Not on file Sexual Orientation Not on file Last Filed Vital Signs Vital Sign Reading Time Taken Comments Blood Pressure 122/90 05/10/2025 8:39 AM CDT Pulse 113 05/10/2025 8:39 AM CDT Temperature 36.3 C (97.4 F) 05/10/2025 8:39 AM CDT Respiratory Rate 18 05/10/2025 8:39 AM CDT Oxygen Saturation 95% 05/10/2025 8:39 AM CDT Inhaled Oxygen Concentration - - Weight 96.2 kg (212 lb) 05/10/2025 8:39 AM CDT Height 165.1 cm (5' 5 ) 05/10/2025 8:39 AM CDT Body Mass Index 35.28 05/10/2025 8:39 AM CDT Plan of Treatment Upcoming Encounters Date Type Department Care Team (Late st Contact Info) Description 06/14/2025 11:25 AM CDT External Patient Visit [facility] Jayne Rucker - Primary Care [address] [place] [address] Jay Kim MD [address] [facility] [address] [place] [address] Health Maintenance Due Date Last Done Comments Hepatitis B Vaccines (1 of 3 - 19+ 3-dose series) 1992 Pap Smear 05/08/2019 05/08/2016 Pneumococcal Vaccine: 50+ Years (2 of 2 - PCV20 or PCV21) 2023 08/21/2018 Shingrix (ZOSTER RECOMBINANT) (1 of 2) 2023 Td, Tdap Vaccines Adult 02/01/2025 02/01/2015 Influenza Vaccination (#1) 06/03/202509/22, 08/16/2021, 08/18/2020, Additional history exists Colonoscopy 06/13/2025 Postponed from 2018 (Patient Refused) Mammogram 06/13/2025 Postponed from 2013 (Patient Refused) Annual Wellness 10/08/2025 10/08/2024, 10/08/2024 HIB Vaccines Aged Out No longer eligi ble based on patient's age to complete this topic HPV Vaccines Aged Out No longer eligi ble based on patient's age to complete this topic Hepatitis A Vaccines Aged Out No long er eligible based on patient's age to complete this topic IPV Vaccines Aged Out No longer eligi ble based on patient's age to complete this topic Meningococcal Vaccines Aged Out No lo nger eligible based on patient's age to complete this topic RSV Mab Nirsevimab (Beyfortus) <20 months Aged Out No longer eligibl e based on patient's age to complete this topic Rotavirus Vaccines Aged Out No longer eligible based on patient's age to complete this topic Insurance [place] [employer] Care Teams Inker Relationship Specialty Start Date End Date Jay Kim MD [address] [facility] [address] [place] [address] PCP - General Internal Medicine 10/04/22
--- OUTSIDE RECORDS SUMMARY | 2025-06-09 18:55 | XMS_ITS | Encounter Summary ---
Author Organization [facility] Address [address] [place] [address] Care Team Providers Care Car Conditioner Name Role Phone Rashad Locke DO Primary Care Provider Unavaila ble Reason for Referral * Outpatient Services (Routine) - Closed Specialty Diagnoses / Procedures Referred By Contac t Referred To Contact Radiology Diagnoses Abdominal pain Urinary incontinence Procedures CT ABDOMEN PELVIS W WO CONTRAST Rashad Locke DO [facility] CT Scan [place] [address] [facility] [address] [place] [address] Phone: tel: fax: Referral ID Status Reason Start Date Expiration Date V isits Requested Visits Authorized [id number] Closed [place] View CTS to Schedule (SGF) 10/03/2016 11/09/2016 1 1 E COORDINATOR Encounter Details Date Type Department Care Team (Latest Contact Info) Description 10/03/2016 Ancillary Orders [facility] Centralized Scheduling [address] [facility] [address] [place] [address] Rashad Locke DO NO ADDRESS ON FILE Abdominal pain; Urinary incontinence Social History Tobacco Use Types Packs/Day Years Used Date Smoking Tobacco: Never Smokeless Tobacco: Former Alcohol Use Standard Drinks/Week Comments No 0 (1 standard drink = 0.6 oz pur e alcohol) Comments No Sex and Gender Information Value Date Recorded Sex Assigned at Not on file Legal Sex Female 3:59 AM ACUTE COORDINATOR Gender Identity Not on file Sexual Orientation Not on file Occupation Industry Job Start Date Job End Date Not on file Not on file Not on file Not on file documented as of this encounter Plan of Treatment Not on file documented as of this encounter Results * CT ABDOMEN PELVIS W WO CONTRAST (10/18/2016 8:56 AM ACUTE COORDINATOR) Anatomical Region Laterality Modality Abdomen Computed Tomogra phy 10/18/2016 8:59 AM ACUTE COORDINATOR Impressions 10/18/2016 9:20 AM ACUTE COORDINATOR IMPRESSION: Please see below. Exam: CT ABDOMEN PELVIS W WO CONTRAST Date/Time of Exam: 10/18/2016 8:56 AM Reason For Exam: Abdominal pain,Urinary incontinence. Technique: Axial tomograms obtained through the abdomen and pelvis pre and post administration of Optiray 240 intravenous contrast, 100 mL. Oral contrast given. Findings: Imaged lung bases unremarkable. Mildly elevated right hemidiaphragm. Solid upper abdominal organs unremarkable. Surgical absence of gallbladder. Bladder unremarkable. Nonspecific appearing gynecologic organs. Bowel structures nonspecific. Appendix not visualized. No lymphadenopathy, free fluid or free air. Balloon-tip of gastrostomy tube within lumen of body of stomach. Imaged skeleton unremarkable. IMPRESSION: No apparent significant pathology. Narrative Procedure Note Kahlil Miller MD - 10/18/2016 IMPRESSION IMPRESSION: Please see below. Exam: CT ABDOMEN PELVIS W WO CONTRAST Date/Time of Exam: 10/18/2016 8:56 AM Reason For Exam: Abdominal pain,Urinary incontinence. Technique: Axial tomograms obtained through the abdomen and pelvis pre and post administration of Optiray 240 intravenous contrast, 100 mL. Oral contrast given. Findings: Imaged lung bases unremarkable. Mildly elevated right hemidiaphragm. Solid upper abdominal organs unremarkable. Surgical absence of gallbladder. Bladder unremarkable. Nonspecific appearing gynecologic organs. Bowel structures nonspecific. Appendix not visualized. No lymphadenopathy, free fluid or free air. Balloon-tip of gastrostomy tube within lumen of body of stomach. Imaged skeleton unremarkable. IMPRESSION: No apparent significant pathology. 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
--- OUTSIDE RECORDS SUMMARY | 2025-06-09 18:55 | XMS_ITS | Encounter Summary ---
Author Organization [facility] Address [address] [facility] [place] [address] Care Team Providers Care Cargo And Container Inspector Name Role Phone Rashad Locke DO Primary Care Provider Marisa ble Encounter Details Date Type Department Care Team (Latest Contact Info) Description 07/19/2003 Outpatient Historical [facility]- [address] [place] [phone] Rashad Locke DO NO ADDRESS ON FILE TENOSYNOV HAND/WRIST NEC (Primary Dx) Social History Tobacco Use Types Packs/Day Years Used Date Smoking Tobacco: Never Assessed Comments Unknown Sex and Gender Information Value Date Recorded Sex Assigned at Not on file Legal Sex Female 3:59 AM ASSEMBLER SANDAL PARTS Gender Identity Not on file Sexual Orientation Not on file documented as of this encounter Plan of Treatment Not on file documented as of this encounter Visit Diagnoses Diagnosis Other tenosynovitis of hand and wrist- Primary documented in this encounter Additional Health Concerns Infection Onset Date Last Indicated Resolved Time 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
--- OUTSIDE RECORDS SUMMARY | 2025-06-09 18:55 | XMS_ITS | Encounter Summary ---
Author Organization [facility] Address [address] [place] [address] Care Team Providers Care Logging Tractor Operator Swamp Name Role Phone Rashad Locke DO Primary Care Provider Unavaila ble Encounter Details Date Type Department Care Team (Latest Contact Info) Description 07/23/2004 Outpatient Historical [address] [address] Nestor Colin, [place] NO ADDRESS ON FILE URIN TRACT INFECTION NOS (Primary Dx); CERVICALGIA; ACUTE URI NOS Social History Tobacco Use Types Packs/Day Years Used Date Smoking Tobacco: Never Assessed Comments Unknown Sex and Gender Information Value Date Recorded Sex Assigned at Not on file Legal Sex Female 3:59 AM DEPUTY SHERIFF K9 HANDLER Gender Identity Not on file Sexual Orientation Not on file documented as of this encounter Plan of Treatment Not on file documented as of this encounter Visit Diagnoses Diagnosis Urinary tract infection, site not specified- Primary Cervicalgia Acute upper respiratory infections of unspecified site documented in this encounter Additional Health Concerns Infection Onset Date Last Indicated Resolved Time 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
--- OUTSIDE RECORDS SUMMARY | 2025-06-09 18:55 | XMS_ITS | Encounter Summary ---
Author Organization [facility] Address [address] [place] [address] Care Team Providers Care Brand Sales Consultant Name Role Phone Rashad Locke DO Primary Care Provider Marisa ble Encounter Details Date Type Department Care Team (Late st Contact Info) Description 02/07/2021 Lab Requisition [facility] General Laboratory Services [address] [place] [address] Armen Dumont, [address] [address] Social History Tobacco Use Types Packs/Day Years Used Date Smoking Tobacco: Never Smokeless Tobacco: Former Snuff Alcohol Use Standard Drinks/Week Comments Not Asked 0 (1 standard drink = 0.6 oz pur e alcohol) Comments No Sex and Gender Information Value Date Recorded Sex Assigned at Not on file Legal Sex Female 3:59 AM CLOTH HANDLER Gender Identity Not on file Sexual Orientation Not on file Occupation Industry Job Start Date Job End Date Not on file Not on file Not on file Not on file documented as of this encounter Plan of Treatment Not on file documented as of this encounter Procedures Procedure Name Priority Date/Time Associated Diagnosis Comments LEVETIRACETAM LEVEL Routine 02/07/2021 9 :10 AM CDT documented in this encounter Results * LEVETIRACETAM LEVEL (02/07/2021 9:10 AM CDT) LEVETIRACETAM LEVEL 16.4 12.0 - 46.0 g/mL 02/07/2021 8:24 PM CDT [facility] Blood 02/07/2021 9:10 AM CDT 02/07/2021 7:55 PM CDT Narrative [facility] - 02/07/2021 8:24 PM CDT Note that brivaracetem (Briviact), is known to significantly interfere with this assay. An alternative method should be utilized if therapy involves both levetiracetam and brivaracetem. Armen Dumont DO CHEMISTRY ORDERABLES Final Result [facility] [address] [place] [address] documented in this encounter Visit Diagnoses Not on filedocumented in this encounter Additional Health Concerns Infection Onset Date Last Indicated Resolved Time Multi Drug Resistant Organis m (MDRO) Comment:Urine 04/15/15; Sputum 04/15/15 04/17/2015 04/17/2015 documented as of this encounter Care Teams Brand Sales Consultant Relationship Specialty Start Date End Date Rashad Locke DO PCP - General Family Practice 05/09/15 documented as of this encounter
--- OUTSIDE RECORDS SUMMARY | 2025-06-09 18:55 | XMS_ITS | Encounter Summary ---
Author Organization [facility] Address [address] [place] [address] Care Team Providers Care Medical Office Receptionist Name Role Phone Rashad Locke DO Primary Care Provider Unavaila ble Encounter Details Date Type Department Care Team (Latest Contact Info) Description 07/25/2003 Outpatient Historical [address] [phone] Rashad Locke DO NO ADDRESS ON FILE ENTHESOPATHY, SITE NOS (Primary Dx) Social History Tobacco Use Types Packs/Day Years Used Date Smoking Tobacco: Never Assessed Comments Unknown Sex and Gender Information Value Date Recorded Sex Assigned at Not on file 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 Gender Identity Not on file Sexual Orientation Not on file documented as of this encounter Plan of Treatment Not on file documented as of this encounter Visit Diagnoses Diagnosis Enthesopathy of unspecified site- Primary documented in this encounter Additional Health Concerns Infection Onset Date Last Indicated Resolved Time Multi Drug Resistant Organis m (MDRO) Comment:Urine 04/15/15; Sputum 04/15/15 04/17/2015 04/17/2015 documented as of this encounter Care Teams Medical Office Receptionist Relationship Specialty Start Date End Date Rashad Locke DO PCP - General Family Practice 05/09/15 documented as of this encounter
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
--- OUTSIDE RECORDS SUMMARY | 2025-06-09 18:55 | XMS_ITS | Encounter Summary ---
Author Organization [facility] Address [address] [place] [address] Care Team Providers Care Sewer Line Repairer Name Role Phone Rashad Locke DO Primary Care Provider Unavaila ble Encounter Details Date Type Department Care Team ([facility] st Contact Info) Description 05/01/2025 Results Follow-Up [facility] Emergency Medicine [address] [place] [id number] Gloria Everett, RN BLOOD CULTURE, BLOOD CULTURE Social History Tobacco Use Types Packs/Day Years Used Date Smoking Tobacco: Never Smokeless Tobacco: Former Alcohol Use Standard Drinks/Week Comments Not Asked 0 (1 standard drink = 0.6 oz pur e alcohol) Comments Unknown Sex and Gender Information Value Date Recorded Sex Assigned at Not on file Legal Sex Female 4:51 PM 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 CONSULTANT Gender Identity Not on file Sexual Orientation Not on file documented as of this encounter Plan of Treatment Not on file documented as of this encounter Visit Diagnoses Not on filedocumented in this encounter Additional Health Concerns Infection Onset Date Last Indicated Resolved Time Multi Drug Resistant Organis m (MDRO) Comment:Urine 04/15/15; Sputum 04/15/15 04/17/2015 04/17/2015 05/02/2025 8:32 AM C DT documented as of this encounter Care Teams Sewer Line Repairer Relationship Specialty Start Date End Date Rashad Locke DO PCP - General Family Practice 05/09/15 documented as of this encounter
[2025-06-09] MEDS: morphine 4 mg/mL SDV 1 mL 2 MG IVP (19:24)
[2025-06-09] MEDS: piperacillin-tazobactam 4.5 GM in sodium chloride 0.9% (plus) 50 ML IV (19:40)
[2025-06-09 19:52] LABS: Glucose Urine UA Negative (Normal); Nitrate Urine Negative (Negative); Specific Gravity, Urine 1.026 (1.005-1.030)
[2025-06-09 19:57] LABS: Add Urine Microscopic? YES
[2025-06-09 19:57] LABS: Lactic Sepsis W/Reflex 3.3 mmol/L (0.5-2.2)
[2025-06-09 20:45] LABS: Hematocrit 44.3 % (36-47); Hemoglobin 14.80 g/dL (11.27-16.99); Mean Corpuscular HGB Conc 33.4 g/dL (30-55); Mean Corpuscular Hemoglobin 31.5 pg (27-33); Mean Corpuscular Volume 94.3 fl (85-98); Nucleated Red Blood Cells % 0 %; Platelet Count 256 10^3/cmm (157-399); Red Blood Count 4.70 10^6/uL (3.85-5.65); White Blood Count 21.74 10^3/uL (3.29-11.43)
[2025-06-09 20:45] LABS: Base Excess VBG -0.6 mmol/L (-3.0-3.0); Blood Gas Allen Test Pos; Blood Gas Operator Identificat gerca; Blood Gas Sample Type Venous; HCO3 VBG 24.5 mmol/L (24-28); PCO2 VBG 41.2 mmHg (41-51); PO2 VBG 34.8 mmHg (25-40); Venous Blood Gas Hematocrit 48.0 % (37-47); pH VBG 7.38 (7.32-7.42)
[2025-06-09 21:00] LABS: INR 1.00 (0.8-1.2); Partial Thromboplastin Time 24.7 SECONDS (23.9-36.7); Prothrombin Time 14.00 SECONDS (12.1-14.9)
[2025-06-09 21:05] LABS: Alanine Aminotransferase 58 U/L (0-33); Albumin Level 3.7 g/dL (3.5-5.2); Alkaline Phosphatase 73 U/L (35-105); Anion Gap 17.1 (5-19); Aspartate Amino Transferase 35 U/L (0-32); Blood Urea Nitrogen 9 mg/dL (6-20); Calcium 8.7 mg/dL (8.5-10.5); Carbon Dioxide 23 mmol/L (22-29); Chloride 104 mmol/L (98-107); Creatinine Clr Calc Pharmacy 186.9595; Globulin 3.5 g/dL (1.3-4.6); Glucose 149 mg/dL (65-115); Magnesium 1.9 mg/dL (1.7-2.3); Osmolality Calculated 291 mOsm/kg (285-295); Potassium 4.1 mmol/L (3.5-5.1); Sodium 140 mmol/L (136-145); Total Protein 7.2 g/dL (6.6-8.7)
[2025-06-09 21:11] LABS: Procalcitonin 1.82 ng/mL (0-0.5)
[2025-06-09 21:17] LABS: Reflex Lactate Order REFLEX LACTIC ORDERD
--- NOTE | 2025-06-09 21:26 | PHA.VACGOAL ---
Vancomycin Goal - Goal Vancomycin Indication:: SSTI - Therapy Day of therpy:: Day []of [] . Actual body weight (kg): 211 lb 6.4 oz - Data Labs: WBC 21.74 10^3/uL (3.29-11.43) H 06/09/25 20:35 RBC 4.70 10^6/uL (3.85-5.65) 06/09/25 20:35 Hgb 14.80 g/dL (11.27-16.99) 06/09/25 20:35 Hct 44.3 % (36-47) 06/09/25 20:35 MCV 94.3 fl (85-98) 06/09/25 20:35 MCH 31.5 pg (27-33) 06/09/25 20:35 MCHC 33.4 g/dL (30-55) 06/09/25 20:35 RDW 13.0 % (12.1-15.1) 06/09/25 20:35 Sodium 140 mmol/L (136-145) 06/09/25 20:35 Potassium 4.1 mmol/L (3.5-5.1) 06/09/25 20:35 Chloride 104 mmol/L (98-107) 06/09/25 20:35 Carbon Dioxide 23 mmol/L (22-29) 06/09/25 20:35 Anion Gap 17.1 (5-19) 06/09/25 20:35 BUN 9 mg/dL (6-20) 06/09/25 20:35 Creatinine 0.4 mg/dL (0.5-0.9) L 06/09/25 20:35 GFR Calculation 168.3 mL/min (90-130) H 06/09/25 20:35 Treatment plan:: new consult Regimen:: GAVE 1500MG LOADING DOSE. STARTING MAINTENANCE DOSE OF 1250 Q8H PER PROTOCOL. WILL OBTAIN TROUGH PRIOR TO 4TH DOSE.
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
[2025-06-09] MEDS: morphine 4 mg/mL SDV 1 mL IVP (22:44)
[2025-06-09 22:59] LABS: Lactic Acid level (Lactate) 2.6 mmol/L (0.5-2.2)
[2025-06-10] VITALS (13 sets, daily range): BP systolic 93–135; BP diastolic 65–80; PULSE 92–123; RESP 17–24; TEMP 36.8–38.4; O2SAT 91–98
--- NOTE | 2025-06-10 00:20 | CTR_ITS ---
PROCEDURE INFORMATION: Exam: CT Chest With Contrast; Diagnostic Exam date and time: 06/10/2025 2:48 AM Age: 49 years old Clinical indication: Abdominal pain; Flank; Other: Bilat; Other: Fever; Additional info: Rash bilateral flank, thorac, sacral ulcer, sepsis, fever TECHNIQUE: Imaging protocol: Diagnostic computed tomography of the chest with contrast. Radiation optimization: All CT scans at this facility use at least one of these dose optimization techniques: automated exposure control; mA and/or kV adjustment per patient size (includes targeted exams where dose is matched to clinical indication); or iterative reconstruction. Contrast material: OMNI 350; Contrast volume: 100 ml; Contrast route: INTRAVENOUS (IV); COMPARISON: CT chest abdpel w/*[id number] 02/12/2025 11:56 AM RADIATION DOSE METRICS: Total DLP (mGy-cm): 491.7 FINDINGS: Lungs: Limited lung volumes likely related to the patient's large body habitus. There is some limitation resulting from respiratory motion by the patient during the acquisition. No consolidation. No masses. Pleural spaces: Unremarkable. No pneumothorax. No pleural effusion. Heart: Unremarkable. No cardiomegaly. No pericardial effusion. Lymph nodes: Unremarkable. No enlarged lymph nodes. Vasculature: Unremarkable. No aortic aneurysm. Bones/joints: Unremarkable. No acute fracture. Soft tissues: Unremarkable. PROCEDURE INFORMATION: Exam: CT Abdomen And Pelvis With Contrast Exam date and time: 06/10/2025 2:48 AM Age: 49 years old Clinical indication: Abdominal pain; Flank; Other: Bilat; Other: Fever; Additional info: Rash bilateral flank, thorac, sacral ulcer, sepsis, fever TECHNIQUE: Imaging protocol: Computed tomography of the abdomen and pelvis with contrast. Radiation optimization: All CT scans at this facility use at least one of these dose optimization techniques: automated exposure control; mA and/or kV adjustment per patient size (includes targeted exams where dose is matched to clinical indication); or iterative reconstruction. Contrast material: OMNI 350; Contrast volume: 100 ml; Contrast route: INTRAVENOUS (IV); COMPARISON: CT abdomen pelvis wo con [id number] 01/10/2020 4:41 AM RADIATION DOSE METRICS: Total DLP (mGy-cm): 941.7 FINDINGS: Liver: There is diffuse hepatic steatosis. No mass. Gallbladder and biliary ducts: Status post cholecystectomy. No ductal dilation. Pancreas: Normal. No ductal dilation. Spleen: Normal. No splenomegaly. Adrenal glands: Normal. No mass. Kidneys and ureters: Normal. No hydronephrosis. Stomach and bowel: A percutaneous gastrostomy tube extends into the body of the stomach. No obstruction. There is no evidence of focal inflammation. Appendix: No evidence of appendicitis. Intraperitoneal space: Unremarkable. No free air. No significant fluid collection. Vasculature: Unremarkable. No abdominal aortic aneurysm. Lymph nodes: Unremarkable. No enlarged lymph nodes. Urinary bladder: A Ramos catheter extends into the urinary bladder which is decompressed. Excreted contrast extends into the urinary bladder. Reproductive: Unremarkable as visualized. 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 Soft tissues: There are bilateral infiltrative changes associated with the subcutaneous tissues in the lateral aspect of the lower pelvis. CT/CT chest abdpel w/*[id number] IMPRESSION: No significant thoracic abnormality is appreciated. The imaging is somewhat limited by respiratory motion. IMPRESSION: 1. There are bilateral infiltrative changes associated with the subcutaneous fat in the lateral aspect of the lower pelvis. No discrete collection is identified. 2. There is evidence of diffuse hepatic steatosis. 3. No significant acute abdominal abnormality is noted.
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
[2025-06-10] MEDS: iohexol 350 mg/mL 500 mL Btl (per mL) IV (02:56)
[2025-06-10] MEDS: piperacillin-tazobactam 3.375 GM in sodium chloride 0.9% (plus) 50 ML IV ×3 (04:18→21:03)
[2025-06-10] MEDS: morphine 4 mg/mL SDV 1 mL 2 MG IVP ×3 (04:25→22:37)
[2025-06-10 04:59] LABS: Hematocrit 42.2 % (36-47); Hemoglobin 13.70 g/dL (11.27-16.99); Mean Corpuscular HGB Conc 32.5 g/dL (30-55); Mean Corpuscular Hemoglobin 31.4 pg (27-33); Mean Corpuscular Volume 96.6 fl (85-98); Nucleated Red Blood Cells % 0 %; Platelet Count 239 10^3/cmm (157-399); Red Blood Count 4.37 10^6/uL (3.85-5.65); White Blood Count 19.03 10^3/uL (3.29-11.43)
[2025-06-10 05:26] LABS: Alanine Aminotransferase 50 U/L (0-33); Albumin Level 3.3 g/dL (3.5-5.2); Alkaline Phosphatase 64 U/L (35-105); Blood Urea Nitrogen 9 mg/dL (6-20); Calcium 8.4 mg/dL (8.5-10.5); Carbon Dioxide 22 mmol/L (22-29); Chloride 104 mmol/L (98-107); Creatinine Clr Calc Pharmacy 254.7444; Globulin 2.8 g/dL (1.3-4.6); Glucose 116 mg/dL (65-115); Osmolality Calculated 288 mOsm/kg (285-295); Sodium 139 mmol/L (136-145); Total Protein 6.1 g/dL (6.6-8.7)
[2025-06-10 05:28] LABS: Estmated Average Glucose 117; Hemoglobin A1C 5.7 % (4.0-6.0)
[2025-06-10 05:30] LABS: Anion Gap 16.6 (5-19); Aspartate Amino Transferase 35 U/L (0-32); Potassium 3.6 mmol/L (3.5-5.1)
[2025-06-10 05:33] LABS: Cholesterol 115 mg/dL (0-200); HDL Cholesterol 49 mg/dL (60-100); NT Pro B Type Natriuretic Pept 687 pg/mL (0-125); Thyroid Stimulating Hormone 1.00 uIU/mL (0.27-4.20); Triglycerides 109 mg/dL (0-150)
[2025-06-10] MEDS: polyethylene glycol 3350 Pkt 17 gm PO (09:11)
[2025-06-10 09:48] LABS: MRSA PCR OZH (swab) MRSA Detected (Not Detecte)
--- NOTE | 2025-06-10 11:28 | PC.NUTR ---
Received consult and recommend the following formula and regimen. Jevity 1.5, bolus feeds with 60mls FWF before and after feed, per following schedule: 8am/ noon/ 4pm/ midnight: 240mls or 1 carton Jevity 1.5 Jevity 1.5 x 4 cartons plus FWF 60mls before and after will provide 60 grams protein or 91% Pt's estimated protein needs, 1200mls or 87% Pt's estimated fluid needs, and 1420kcals or 101% Pt's estimated calorie needs.
--- NOTE | 2025-06-10 13:05 | P.PN_ITS ---
Subjective 2 Subjective: Admitted overnight. H&P and labs appreciated. Patient seen laying comfortably in bed, nonverbal. Hemodynamically stable. Tmax since admission 99.7 Fahrenheit. On 2 L saturating more than 95%. Vitals/I&O/Wt Last Vital Signs Temp 99.7 F H 06/10/25 11:50 Pulse 99 06/10/25 11:50 Resp 20 H 06/10/25 11:50 BP 135/80 06/10/25 11:50 Pulse Ox 98 06/10/25 11:50 O2 Del Method Nasal Cannula 06/10/25 11:50 O2 Flow Rate 2 06/10/25 04:00 06/09/25 06/10/25 06/10/25 22:59 06:59 14:59 Intake Total 1990 50 / 50 Output Total 500 / 500 Balance 1990 -500 / 1491 50 / 50 Weight last 48 hrs Weight 99.79 kg Weight 97.976 kg Weight 95.889 kg Physical Exam 2 Const: COMMON NORMALS: no acute distress ORIENTATION/CONSCIOUSNESS: Yes awake and Yes confused; not oriented to person, not oriented to place and not oriented to time Eye: COMMON NORMALS: Equal, round and reactive pupils present PUPIL: Yes Equal, round and reactive pupils present Resp: COMMON NORMALS: normal respiratory effort, No retractions, No use of accessory muscles and clear to auscultation bilaterally AUSCULTATION: clear to auscultation bilaterally Cardio: COMMON NORMALS: regular rate, regular rhythm, S1 normal heart sound present and S2 normal heart sound present RATE: regular rate RHYTHM: r egular rhythm HEART SOUNDS: S1 normal heart sound present and S2 normal heart sound present GI: COMMON NORMALS: Normal to inspection, nondistended, normoactive bowel sounds present, Soft to palpation and non-tender PALPATION: Yes Soft to palpation OTHER: PEG tube in place Extremity: NARRATIVE EXTREMITY EXAM: DP PT pulses palpable Neuro: SENSORIUM/ORIENTATION: No oriented to person, No oriented to place and No oriented to time Skin: COMMON NORMALS: turgor normal NARRATIVE SKIN EXAM: Patient has a rash bilateral gluteus, bilateral lumbar region, bilateral thoracic region, erythematous, warm, no palpable abscess, but does have a sacral decubitus ulcer measuring 1 x 1 cm with purulent drainage Also has erythema bilateral thighs, posterior GENERAL SKIN EXAM: turgor normal Urinary Catheter Management: Ramos: Cath Placed During This Visit: yes Reason for Continuing Indwelling Catheter: Other Urinary Catheter Date of Insertion: 06/09/25 Urinary Catheter Time of Insertion: 19:47 Data 06/10/25 04:17 06/10/25 04:17 Micro: Microbiology 06/09/25 19:16 Blood Culture - Preliminary Blood SPECIMEN COLLECTED 06/09/25 19:14 Blood Culture - Preliminary Blood SPECIMEN COLLECTED A&P Assessment and plan 1. Sepsis: SIRS: Tachycardic, Febrile, Leukocytosis Source: Cellulitis End organ damage: Acute infectious encephalopathy Lactic acid elevated. Repeat lactate in AM. Continue with NS at 75 cc/h. Patient did receive full 30 mL/kg BW Monitor blood pressures. Keep mean artery pressure 65 mmHg. Follow-up blood culture, urine culture. MRSA swab positive. Check stool studies. Continue with empiric IV vancomycin and Zosyn. De-escalate as per culture sensitivities. Most likely in setting of cellulitis. Appreciate CT chest abdomen pelvis done on admission. No intrathoracic abnormality. No collection seen on CT abdomen pelvis. 2. Cellulitis: Associated with decub ulcer. Appreciate CT abdomen pelvis. Given recurrence of cellulitis will consult surgery for wound care and possible debridement. Frequent turning and repositioning. Offloading. 3. Quadriplegia: 4. Nonverbal: 5. Lactic acidosis: 6. Acute encephalopathy: Most likely secondary to sepsis. Continue to monitor. Patient at baseline is nonverbal and has quadriplegia 7. Sacral decubitus ulcer: Plan: Continue other home chronic medications including Keppra. Start at home PEG tube feeds. Dietitian consult. Full code Lovenox for DVT prophylaxis PDMP PDMP Reviewed: Not Reviewed Attestations 2 Medical Necessity Statement*: Requires further hospitalization for management of sepsis, acute encephalopathy in setting of cellulitis, decub ulcer Diagnoses Sepsis A41.9 Cellulitis L03.90 Quadriplegia G82.50 Nonverbal R47.01 Lactic acidosis E87.20 Acute encephalopathy G93.40 Sacral decubitus ulcer L89.159
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
[2025-06-11] VITALS (7 sets, daily range): BP systolic 98–115; BP diastolic 65–76; PULSE 77–92; RESP 16–24; TEMP 36.5–37.5; O2SAT 96–99
[2025-06-11 04:57] LABS: Hematocrit 37.4 % (36-47); Hemoglobin 12.20 g/dL (11.27-16.99); Mean Corpuscular HGB Conc 32.6 g/dL (30-55); Mean Corpuscular Hemoglobin 31.4 pg (27-33); Mean Corpuscular Volume 96.4 fl (85-98); Nucleated Red Blood Cells % 0 %; Platelet Count 215 10^3/cmm (157-399); Red Blood Count 3.88 10^6/uL (3.85-5.65); White Blood Count 10.44 10^3/uL (3.29-11.43)
[2025-06-11] MEDS: piperacillin-tazobactam 3.375 GM in sodium chloride 0.9% (plus) 50 ML IV ×3 (05:19→20:54)
[2025-06-11 05:20] LABS: Alanine Aminotransferase 35 U/L (0-33); Albumin Level 2.9 g/dL (3.5-5.2); Alkaline Phosphatase 68 U/L (35-105); Anion Gap 13.5 (5-19); Aspartate Amino Transferase 21 U/L (0-32); Blood Urea Nitrogen 8 mg/dL (6-20); Calcium 8.7 mg/dL (8.5-10.5); Carbon Dioxide 24 mmol/L (22-29); Chloride 107 mmol/L (98-107); Creatinine Clr Calc Pharmacy 254.3003; Globulin 3.3 g/dL (1.3-4.6); Glucose 114 mg/dL (65-115); Osmolality Calculated 291 mOsm/kg (285-295); Potassium 3.5 mmol/L (3.5-5.1); Sodium 141 mmol/L (136-145); Total Protein 6.2 g/dL (6.6-8.7)
[2025-06-11] MEDS: polyethylene glycol 3350 Pkt 17 gm PO (08:07)
--- NOTE | 2025-06-11 10:15 | P.PN_ITS ---
Subjective 2 Subjective: Decubitus ulcer stage I Vitals/I&O/Wt Last Vital Signs Temp 98.4 F 06/11/25 07:57 Pulse 90 06/11/25 07:57 Resp 16 06/11/25 07:57 BP 100/65 06/11/25 07:57 Pulse Ox 99 06/11/25 07:57 O2 Del Method Nasal Cannula 06/11/25 07:57 O2 Flow Rate 2 06/11/25 08:00 06/10/25 06/11/25 06/11/25 22:59 06:59 14:59 Intake Total 678.125 / 728.125 296.875 / 1025.000 250 / 250 Output Total 900 / 900 450 / 1350 Balance -221.875 / -171.875 -153.125 / -325.000 250 / 250 Weight last 48 hrs Weight 219 lb 4.8 oz Weight 220 lb Weight 216 lb Weight 211 lb 6.4 oz Physical Exam 2 Narrative: Chest: Unlabored breathing room air. No lymphadenopathy. Heart: Regular rate and rhythm. Abdomen: Soft, nontender, nondistended. No masses or lymphadenopathy. Decubitus ulcer stage I Urinary Catheter Management: Ramos: Cath Placed During This Visit: yes Reason for Continuing Indwelling Catheter: Acute Urinary Retention or Obstruction Urinary Catheter Date of Insertion: 06/09/25 Urinary Catheter Time of Insertion: 19:47 Data 06/11/25 04:20 06/11/25 04:20 Micro: Microbiology 06/09/25 19:16 Blood Culture - Preliminary Blood NEGATIVE TO DATE 06/09/25 19:14 Blood Culture - Preliminary Blood NEGATIVE TO DATE A&P Assessment and plan 1. Sacral decubitus ulcer: Plan: 49-year-old female with stage I decubitus ulcers. Continue pressure offloading with turning every 30 minutes. Rest of care per hospitalist. PDMP PDMP Reviewed: Not Reviewed Attestations 2 Medical Necessity Statement*: N/A Coding Level of Care Code 27580 Diagnoses Sacral decubitus ulcer L89.159
--- NOTE | 2025-06-11 11:54 | P.PN_ITS ---
Subjective 2 Subjective: No acute events overnight. Patient has remained hemodynamically stable. Tmax in last 24 hours 99.7 Fahrenheit yesterday at 12 PM. Family at bedside. As per family patient is very close to her baseline mentation. Vitals/I&O/Wt Last Vital Signs Temp 99.2 F 06/11/25 11:50 Pulse 85 06/11/25 11:50 Resp 18 06/11/25 11:50 BP 115/73 06/11/25 11:50 Pulse Ox 98 06/11/25 11:50 O2 Del Method Nasal Cannula 06/11/25 11:50 O2 Flow Rate 2 06/11/25 08:00 06/10/25 06/11/25 06/11/25 22:59 06:59 14:59 Intake Total 678.125 / 728.125 296.875 / 1025.000 250 / 250 Output Total 900 / 900 450 / 1350 Balance -221.875 / -171.875 -153.125 / -325.000 250 / 250 Weight last 48 hrs Weight 99.473 kg Weight 99.79 kg Weight 97.976 kg Weight 95.889 kg Physical Exam 2 Const: COMMON NORMALS: no acute distress ORIENTATION/CONSCIOUSNESS: Yes awake and Yes confused; not oriented to person, not oriented to place and not oriented to time Eye: COMMON NORMALS: Equal, round and reactive pupils present PUPIL: Yes Equal, round and reactive pupils present Resp: COMMON NORMALS: normal respiratory effort, No retractions, No use of accessory muscles and clear to auscultation bilaterally AUSCULTATION: clear to auscultation bilaterally Cardio: COMMON NORMALS: regular rate, regular rhythm, S1 normal heart sound present and S2 normal heart sound present RATE: regular rate RHYTHM: r egular rhythm HEART SOUNDS: S1 normal heart sound present and S2 normal heart sound present GI: COMMON NORMALS: Normal to inspection, nondistended, normoactive bowel sounds present, Soft to palpation and non-tender PALPATION: Yes Soft to palpation OTHER: PEG tube in place Extremity: NARRATIVE EXTREMITY EXAM: DP PT pulses palpable Neuro: SENSORIUM/ORIENTATION: No oriented to person, No oriented to place and No oriented to time Skin: COMMON NORMALS: turgor normal NARRATIVE SKIN EXAM: Patient has a rash bilateral gluteus, bilateral lumbar region, bilateral thoracic region, erythematous, warm, no palpable abscess, but does have a sacral decubitus ulcer measuring 1 x 1 cm with purulent drainage Also has erythema bilateral thighs, posterior GENERAL SKIN EXAM: turgor normal Urinary Catheter Management: Ramos: Cath Placed During This Visit: yes Reason for Continuing Indwelling Catheter: Acute Urinary Retention or Obstruction Urinary Catheter Date of Insertion: 06/09/25 Urinary Catheter Time of Insertion: 19:47 Data 06/11/25 04:20 06/11/25 04:20 Micro: Microbiology 06/09/25 19:44 Urine Culture - Final Urine,Clean Catch 06/09/25 19:16 Blood Culture - Preliminary Blood NEGATIVE TO DATE 06/09/25 19:14 Blood Culture - Preliminary Blood NEGATIVE TO DATE A&P Assessment and plan 1. Sepsis: SIRS: Tachycardic, Febrile, Leukocytosis Source: Cellulitis End organ damage: Acute infectious encephalopathy Lactic acid elevated. Repeat lactate in AM. Continue with NS at 75 cc/h. Patient did receive full 30 mL/kg BW Monitor blood pressures. Keep mean artery pressure 65 mmHg. Follow-up blood culture, urine culture. MRSA swab positive. Check stool studies. Appreciate all cultures including ESBL E. coli, staph hominis Continue with empiric IV vancomycin and Zosyn. De-escalate as per culture sensitivities. Most likely in setting of cellulitis. Appreciate CT chest abdomen pelvis done on admission. No intrathoracic abnormality. No collection seen on CT abdomen pelvis. 2. Cellulitis: Associated with decub ulcer. Appreciate CT abdomen pelvis. Given recurrence of cellulitis will consult surgery for wound care and possible debridement. Frequent turning and repositioning. Offloading. 3. Quadriplegia: 4. Nonverbal: 5. Lactic acidosis: 6. Acute encephalopathy: Most likely secondary to sepsis. Continue to monitor. Patient at baseline is nonverbal and has quadriplegia 7. Sacral decubitus ulcer: Plan: Continue other home chronic medications including Keppra. Start at home PEG tube feeds. Dietitian consult. Full code Lovenox for DVT prophylaxis Plan for the day: Follow-up blood cultures. Stool studies awaited. MRSA positive. Continue with tube feeds at home routine. For now continue with IV vancomycin and Zosyn. Frequent turning. Appreciate surgical recommendations. No need for debridement. Leukocytosis trending down. For now we will plan to continue to finish 5-day course. PDMP PDMP Reviewed: Not Reviewed Attestations 2 Medical Necessity Statement*: Requested hospitalization for management of sepsis in setting of decub ulcer, cellulitis in a patient with baseline quadriplegia Diagnoses Sepsis A41.9 Cellulitis L03.90 Quadriplegia G82.50 Nonverbal R47.01 Lactic acidosis E87.20 Acute encephalopathy G93.40 Sacral decubitus ulcer L89.159
[2025-06-11 12:19] LABS: Iron 47 ug/dL (37-145); Total Iron Binding Capacity 164 mcg/dl; Unsaturated Iron Binding 117 ug/dL (112-347)
[2025-06-11 12:35] LABS: Vitamin B12 861 pg/mL (232-1245)
[2025-06-12] VITALS (7 sets, daily range): BP systolic 88–106; BP diastolic 60–69; PULSE 71–74; RESP 16–20; TEMP 36.4–37.4; O2SAT 97–98
[2025-06-12 04:52] LABS: Hematocrit 37.2 % (36-47); Hemoglobin 11.90 g/dL (11.27-16.99); Mean Corpuscular HGB Conc 32.0 g/dL (30-55); Mean Corpuscular Hemoglobin 31.6 pg (27-33); Mean Corpuscular Volume 98.7 fl (85-98); Nucleated Red Blood Cells % 0 %; Platelet Count 228 10^3/cmm (157-399); Red Blood Count 3.77 10^6/uL (3.85-5.65); White Blood Count 6.66 10^3/uL (3.29-11.43)
[2025-06-12] MEDS: piperacillin-tazobactam 3.375 GM in sodium chloride 0.9% (plus) 50 ML IV ×3 (05:06→21:03)
[2025-06-12 05:08] LABS: Alanine Aminotransferase 27 U/L (0-33); Albumin Level 2.7 g/dL (3.5-5.2); Alkaline Phosphatase 57 U/L (35-105); Aspartate Amino Transferase 19 U/L (0-32); Blood Urea Nitrogen 4 mg/dL (6-20); Calcium 8.6 mg/dL (8.5-10.5); Carbon Dioxide 23 mmol/L (22-29); Chloride 106 mmol/L (98-107); Creatinine Clr Calc Pharmacy 380.4964; Globulin 3.4 g/dL (1.3-4.6); Glucose 110 mg/dL (65-115); Osmolality Calculated 284 mOsm/kg (285-295); Sodium 138 mmol/L (136-145); Total Protein 6.1 g/dL (6.6-8.7)
[2025-06-12 05:10] LABS: Anion Gap 12.7 (5-19); Potassium 3.7 mmol/L (3.5-5.1)
[2025-06-12] MEDS: morphine 4 mg/mL SDV 1 mL 2 MG IVP ×2 (08:34→16:30)
[2025-06-12] MEDS: polyethylene glycol 3350 Pkt 17 gm PO (08:35)
--- NOTE | 2025-06-12 12:39 | P.PN_ITS ---
Subjective 2 Subjective: No acute events overnight. As per the nursing staff patient felt some bloating after starting peg tube feeds yesterday. On examination patient is more awake and alert. Able to converse with nodding her head. Nonverbal. Has remained hemodynamically stable and afebrile. Afebrile since 06/10. Vitals/I&O/Wt Last Vital Signs Temp 98.7 F 06/12/25 11:47 Pulse 73 06/12/25 11:47 Resp 16 06/12/25 11:47 BP 106/69 06/12/25 11:47 Pulse Ox 97 06/12/25 11:47 O2 Del Method Nasal Cannula 06/12/25 11:47 O2 Flow Rate 2 06/12/25 08:54 06/11/25 06/12/25 06/12/25 22:59 06:59 14:59 Intake Total 300 / 550 317.083 / 867.083 742.917 / 742.917 Output Total 700 / 700 1000 / 1700 Balance -400 / -150 -682.917 / -832.917 742.917 / 742.917 Weight last 48 hrs Weight 99.019 kg Weight 99.473 kg Physical Exam 2 Narrative: Communicates with nodding head. Const: COMMON NORMALS: no acute distress EXAM LIMITATIONS: language barrier (Patient at baseline nonverbal. Communicates with nodding head.) GENERAL APPEARANCE: comfortable, well kempt and well hydrated NUTRITIONAL APPEARANCE: obese ORIENTATION/CONSCIOUSNESS: Yes awake and Yes oriented to time Eye: COMMON NORMALS: Equal, round and reactive pupils present PUPIL: Yes Equal, round and reactive pupils present Resp: COMMON NORMALS: normal respiratory effort, No retractions, No use of accessory muscles and clear to auscultation bilaterally AUSCULTATION: clear to auscultation bilaterally Cardio: COMMON NORMALS: regular rate, regular rhythm, S1 normal heart sound present and S2 normal heart sound present RATE: regular rate RHYTHM: r egular rhythm HEART SOUNDS: S1 normal heart sound present and S2 normal heart sound present GI: COMMON NORMALS: Normal to inspection, nondistended, normoactive bowel sounds present, Soft to palpation and non-tender PALPATION: Yes Soft to palpation OTHER: PEG tube in place Extremity: NARRATIVE EXTREMITY EXAM: DP PT pulses palpable Neuro: SENSORIUM/ORIENTATION: Yes oriented to time Psych: APPEARANCE: Yes well kempt Skin: COMMON NORMALS: turgor normal NARRATIVE SKIN EXAM: Patient has a rash bilateral gluteus, bilateral lumbar region, bilateral thoracic region, erythematous, warm, no palpable abscess, but does have a sacral decubitus ulcer measuring 1 x 1 cm with purulent drainage Also has erythema bilateral thighs, posterior GENERAL SKIN EXAM: turgor normal Urinary Catheter Management: Ramos: Cath Placed During This Visit: yes Reason for Continuing Indwelling Catheter: Other Urinary Catheter Date of Insertion: 06/09/25 Urinary Catheter Time of Insertion: 19:47 Data 06/12/25 04:29 06/12/25 04:29 Micro: Microbiology 06/09/25 19:44 Urine Culture - Final Urine,Clean Catch A&P Assessment and plan 1. Sepsis: SIRS: Tachycardic, Febrile, Leukocytosis Source: Cellulitis End organ damage: Acute infectious encephalopathy Lactic acid elevated. Repeat lactate in AM. Continue with NS at 75 cc/h. Patient did receive full 30 mL/kg BW Monitor blood pressures. Keep mean artery pressure 65 mmHg. Follow-up blood culture, urine culture. MRSA swab positive. Check stool studies. Appreciate all cultures including ESBL E. coli, staph hominis Continue with empiric IV vancomycin and Zosyn. De-escalate as per culture sensitivities. Most likely in setting of cellulitis. Appreciate CT chest abdomen pelvis done on admission. No intrathoracic abnormality. No collection seen on CT abdomen pelvis. 2. Cellulitis: Associated with decub ulcer. Appreciate CT abdomen pelvis. Given recurrence of cellulitis will consult surgery for wound care and possible debridement. Frequent turning and repositioning. Offloading. 3. Quadriplegia: 4. Nonverbal: 5. Lactic acidosis: 6. Acute encephalopathy: Most likely secondary to sepsis. Continue to monitor. Patient at baseline is nonverbal and has quadriplegia 7. Sacral decubitus ulcer: Plan: Continue other home chronic medications including Keppra. Start at home PEG tube feeds. Dietitian consult. Full code Lovenox for DVT prophylaxis Plan for the day: Continue with current IV vancomycin and Zosyn. Frequent turning. Appreciate surgical recommendations. Leukocytosis resolved. Change PEG tube feeds to long-term schedule with gravity. Check abdominal series x-ray. Depending on the result can plan for aggressive bowel regimen. Stool studies awaited. Continue other chronic medications. PDMP PDMP Reviewed: Not Reviewed Attestations 2 Medical Necessity Statement*: Requested hospitalization for management of sepsis in setting of decub ulcer, cellulitis in a patient with baseline quadriplegia Diagnoses Sepsis A41.9 Cellulitis L03.90 Quadriplegia G82.50 Nonverbal R47.01 Lactic acidosis E87.20 Acute encephalopathy G93.40 Sacral decubitus ulcer L89.159
--- NOTE | 2025-06-12 17:23 | P.PN_ITS ---
Subjective 2 Subjective: No acute events overnight Vitals/I&O/Wt Last Vital Signs Temp 99.3 F 06/12/25 15:59 Pulse 72 06/12/25 15:59 Resp 16 06/12/25 16:30 BP 106/68 06/12/25 15:59 Pulse Ox 98 06/12/25 16:30 O2 Del Method Nasal Cannula 06/12/25 15:59 O2 Flow Rate 2 06/12/25 08:54 06/12/25 06/12/25 06/12/25 06:59 14:59 22:59 Intake Total 317.083 / 867.083 742.917 / 742.917 Output Total 1000 / 1700 Balance -682.917 / -832.917 742.917 / 742.917 Weight last 48 hrs Weight 218 lb 4.8 oz Weight 219 lb 4.8 oz Physical Exam 2 Narrative: Chest: Unlabored breathing room air. No lymphadenopathy. Heart: Regular rate and rhythm. Abdomen: Soft, nontender, nondistended. No masses or lymphadenopathy. Extensive stage I decubitus ulcer over the sacrum buttocks Urinary Catheter Management: Ramos: Cath Placed During This Visit: yes Reason for Continuing Indwelling Catheter: Other Urinary Catheter Date of Insertion: 06/09/25 Urinary Catheter Time of Insertion: 19:47 Data 06/12/25 04:29 06/12/25 04:29 A&P Assessment and plan 1. Sacral decubitus ulcer: Plan: 49-year-old female with a stage I decubitus ulcer over sacrum and buttocks. Recommend every 30 minute turning for pressure offloading. Debridement not indicated at this time. PDMP PDMP Reviewed: Not Reviewed Attestations 2 Medical Necessity Statement*: N/A Coding Level of Care Code 02194 Diagnoses Sacral decubitus ulcer L89.159
[2025-06-13] VITALS: BP 94/63; PULSE 74; RESP 16; TEMP 36.7; O2SAT 97
[2025-06-13 04:00] VITALS: BP 98/62; PULSE 73; RESP 14; TEMP 36.6; O2SAT 99
[2025-06-13] MEDS: piperacillin-tazobactam 3.375 GM in sodium chloride 0.9% (plus) 50 ML IV ×2 (04:59→12:20)
[2025-06-13 05:17] LABS: Hematocrit 39.1 % (36-47); Hemoglobin 12.60 g/dL (11.27-16.99); Mean Corpuscular HGB Conc 32.2 g/dL (30-55); Mean Corpuscular Hemoglobin 31.4 pg (27-33); Mean Corpuscular Volume 97.5 fl (85-98); Nucleated Red Blood Cells % 0 %; Platelet Count 243 10^3/cmm (157-399); Red Blood Count 4.01 10^6/uL (3.85-5.65); White Blood Count 6.39 10^3/uL (3.29-11.43)
[2025-06-13 05:48] LABS: Alanine Aminotransferase 26 U/L (0-33); Albumin Level 3.0 g/dL (3.5-5.2); Alkaline Phosphatase 64 U/L (35-105); Anion Gap 13.6 (5-19); Aspartate Amino Transferase 22 U/L (0-32); Blood Urea Nitrogen 5 mg/dL (6-20); Calcium 8.9 mg/dL (8.5-10.5); Carbon Dioxide 24 mmol/L (22-29); Chloride 108 mmol/L (98-107); Creatinine Clr Calc Pharmacy 251.2505; Globulin 3.6 g/dL (1.3-4.6); Glucose 128 mg/dL (65-115); Osmolality Calculated 293 mOsm/kg (285-295); Potassium 3.6 mmol/L (3.5-5.1); Sodium 142 mmol/L (136-145); Total Protein 6.6 g/dL (6.6-8.7)
[2025-06-13 05:54] LABS: Magnesium 2.2 mg/dL (1.7-2.3)
[2025-06-13 07:48] VITALS: BP 103/66; PULSE 76; RESP 18; TEMP 36.9; O2SAT 97
[2025-06-13] MEDS: polyethylene glycol 3350 Pkt 17 gm PO (08:03)
--- NOTE | 2025-06-13 08:11 | PC.NURSE ---
Addendum entered by Angelita Burroughs LPN 06/13/25 15:47: 240mL of Jevity 1.5 followed by 60mL flush Original Note: Residual: 0mL. 60mL flush, 250mL Jevity 1.5, followed by another 602mL flush administered at 8:12am.
[2025-06-13 11:20] VITALS: BP 102/65; PULSE 63; RESP 14; TEMP 36.9; O2SAT 97
--- NOTE | 2025-06-13 12:08 | PC.NURSE ---
Residual:0 60mL flush, 250mL Jevity 1.5, followed by 60mL flush administered at 12:12.
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
--- NOTE | 2025-06-13 13:44 | PC.NURSE ---
This nurse called report to KENROY Nails at [facility] at 1340. Awaiting EMS transport.
[2025-06-13 15:23] VITALS: BP 93/65; PULSE 71; RESP 17; TEMP 37.1; O2SAT 94
[2025-06-13 17:30] VITALS: BP 93/65; PULSE 71; O2SAT 94
== END 2025-06-13 17:31 | disposition skilled nursing facility (03) | DRG 871 ==
LOC: ER 22:40 → MEDSURG 22:54
PROVIDERS: Student in an Organized Health Care Education/Training Program; Admitting Provider Family Medicine; Emergency Provider Emergency Medicine; PCP Internal Medicine; Visit Provider Family Medicine
DX: A41.02 Sepsis due to Methicillin resistant Staphylococcus aureus (principal); G82.50 Quadriplegia, unspecified; G93.41 Metabolic encephalopathy; L03.312 Cellulitis of back [any part except buttock and flank]; L03.317 Cellulitis of buttock; E87.20 Acidosis, unspecified; R65.20 Severe sepsis without septic shock; L89.151 Pressure ulcer of sacral region, stage 1; E66.01 Morbid (severe) obesity due to excess calories; F32.A Depression, unspecified; Z68.36 Body mass index [BMI] 36.0-36.9, adult; Z93.1 Gastrostomy status; Z87.440 Personal history of urinary (tract) infections; Z74.01 Bed confinement status; Z87.820 Personal history of traumatic brain injury
CPT/HCPCS: 36415; 51702; 71045; 71260; 74177; 80053; 80061; 80202; 81001; 82607; 82746; 82803; 83036; 83540; 83550; 83605; 83735; 83880; 84145; 84443; 85025; 85610; 85730; 86140; 87040; 87086; 93005; 96365; 96367; 96372; 96375; 96376; 99285; J1650; J2270; J2543; J3373; J7030; J7050; J9999

== ENCOUNTER 2025-08-26 01:32 | Emergency (ER) | payer MEDICAID, SELFPAY ==
[2025-08-26 01:40] VITALS: BP 148/89; PULSE 119; RESP 18; TEMP 36.6; O2SAT 90; BMI 35.5
--- OUTSIDE RECORDS SUMMARY | 2025-08-26 01:48 | XMS_ITS | Encounter Summary ---
Author Organization [facility] Address [address] [place] [address] Care Team Providers Care Parking Patroller Name Role Phone Rashad Locke DO Primary Care Provider Unavaila ble Encounter Details Date Type Department Care Team (Latest Contact Info) Description 07/25/2003 Outpatient Historical [address] [phone] Rashad Locke DO NO ADDRESS ON FILE ENTHESOPATHY, SITE NOS (Primary Dx) Social History Tobacco Use Types Packs/Day Years Used Date Smoking Tobacco: Never Assessed Comments Unknown Sex and Gender Information Value Date Recorded Sex Assigned at Not on file 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
--- OUTSIDE RECORDS SUMMARY | 2025-08-26 01:48 | XMS_ITS | Encounter Summary ---
Author Organization [facility] Address [address] [place] [address] Care Team Providers Care Rehabilitation Manager Name Role Phone Rashad Locke DO Primary Care Provider Marisa ble Encounter Details Date Type Department Care Team (Late st Contact Info) Description 02/07/2021 Lab Requisition [facility] General Laboratory Services [address] [place] [address] Armen Dumont, [address] [address] Social History Tobacco Use Types Packs/Day Years Used Date Smoking Tobacco: Never Smokeless Tobacco: Former Snuff Alcohol Use Standard Drinks/Week Comments Not Asked 0 (1 standard drink = 0.6 oz pur e alcohol) Comments No Sex and Gender Information Value Date Recorded Sex Assigned at Not on file 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 An alternative method should be utilized if therapy involves both levetiracetam and brivaracetem. 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
--- OUTSIDE RECORDS SUMMARY | 2025-08-26 01:48 | XMS_ITS | Clinical Summary ---
Author Organization 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 Gender Identity Not on file [...] 2:41 PM CDT Respiratory Rate 16 01/24/2020 2:41 PM CDT Oxygen Saturation 99% 01/24/2020 2:41 PM CDT Inhaled Oxygen Concentration - - Weight 91.5 kg (201 lb 12.8 oz) 10/30/2019 9:25 AM HOUSEHOLD APPLIANCES SERVICE TECHNICIAN Height 165.1 cm (5' 5 ) 02/15/2018 [...] (#1) 2025 Medical Devices Implanted Type Area Mine Captain Device Identifier Shelf Expiration Date Model / Serial / Lot [place] Icp Monitor Implanted:Qty: 1 on 02/01/2015 by Rebecca Barrios MD at [facility] Right: Frontal Lobe 06/03/2017 110-4B / NA / [id number] Procedures Procedure Name Priority Date/Time Associated Diagnosis Comments CERV/VAG CYTOPATH, THIN PREP AND HPV Pathology 05/08/2016 2:46 PM CDT Vaginal discharge from Last 3 Months or Most Recently Relevant to Health Maintenance Results * CERV/VAG CYTOPATH, THIN PREP AND HPV (05/08/2016 2:46 PM CDT) CASE REPORT Gynecologic Cytology Report Case: [id number] Authorizing Provider: Meaghan Abdi FNP Collected: 05/08/2016 1446 Ordering Location: [facility] Received: 05/13/2016 1446 Services [place] First Screen: Amanda Live Specimen: LB PAP TP AND HPV PROT, Endocervix 05/22/2016 1:07 PM CDT [facility] Manager Sports Specimen Adequacy Satisfactory for evaluation, endocervical/collins sformation zone component absent 05/22/2016 1:07 PM CDT [facility] Manager Sports General Categorization Negative For Intraepithelial Lesion Or Malignancy 05/22/2016 1:07 PM CDT [facility] Manager Sports Interpretation Negative For Intraepithelial Lesion Or Malignancy 05/22/2016 1:07 PM CDT [facility] Verified by Amanda Live on 05/22/2016 at 1307 CDT Comment: Routine follow-up is suggested. PROJECT CONTROL MANAGER Clinical Information Abnormal Bleeding 05/22/2016 1:07 PM CDT [facility] Manager Sports Clin Hist Comment unknown 05/22/2016 1:07 PM CDT [facility] Manager Sports Previous Pap Date 05/22/2016 1:07 PM CDT [facility] Comment:unknown Manager Sports Prev Pap Result 05/22/2016 1:07 PM CDT [facility] Comment:unknown GynLMP 05/22/2016 1:07 PM CDT [facility] Comment:unknown GynLMPcmt Unknown 05/22/2016 1:07 PM CDT [facility] Manager Sports Educational Note 05/22/2016 1:07 PM CDT [facility] Comment: Gynecological cytology is a screening [...] [phone]) EMBEDDED IMAGE 05/22/2016 1:07 PM CDT [facility] [employer] [facility] Genital SWAB OF ENDOCERVIX / Unknown 05/08/2016 2:46 PM CDT 05/13/2016 2:46 PM CDT Meaghan Abdi LITIGATION SUPPORT ANALYST PATHOLOGY/CYTOLOGY CHRISTIANA STRONG Final Result [facility] [employer] [facility] CLIA# [id number] [address] [place] [address] from Last 3 Months or Most Recently Relevant to Health Maintenance Additional Health Concerns Infection Onset Date Last Indicated 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 CPR is considered to include artificial ventilation, cardiac massage, or chest compressions. * Full Code Date Activated Date Inactivated Comments 04/15/2015 9:09 PM 04/17/2015 1:53 PM * Full Code Date Activated Date Inactivated Comments 03/07/2015 7:31 AM 03/18/2015 2:21 AM Care Teams Appeals Coordinator Relationship Specialty Start Date End Date Rashad Locke DO PCP - General Family Practice 05/09/15
--- OUTSIDE RECORDS SUMMARY | 2025-08-26 01:48 | XMS_ITS | Encounter Summary ---
Author Organization [facility] Address [address] [place] [address] Care Team Providers Care Regional Program Manager Name Role Phone Rashad Locke DO Primary Care Provider Unavaila ble Encounter Details Date Type Department Care Team (Latest Contact Info) Description 07/23/2004 Outpatient Historical [address] [phone] Nestor Colin, [place] NO ADDRESS ON FILE URIN TRACT INFECTION NOS (Primary Dx); CERVICALGIA; ACUTE URI NOS Social History Tobacco Use Types Packs/Day Years Used Date Smoking Tobacco: Never Assessed Comments Unknown Sex and Gender Information Value Date Recorded Sex Assigned at Not on file 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
--- OUTSIDE RECORDS SUMMARY | 2025-08-26 01:48 | XMS_ITS | Clinical Summary ---
Author Organization [employer] Address [address] [facility] Attn: Epic Prelude ADT [place] [address] Care Team Providers Care Doll Repairer Name Role Phone Rashad Locke DO [...] Encounters Date Type Department Care Team Description 08/16/2025 External Device Data STL ABSTRACTION Provider, Abstract 08/09/2025 External Device Data ST[facility] ABSTRACTION Provider, Abstract 07/26/2025 External Device Data [facility] ABSTRACTION Provider, Abstract 07/05/2025 External Device Data [facility] ABSTRACTION Provider, Abstract 07/05/2025 External Device Data [facility] ABSTRACTION Provider, Abstract 07/05/2025 External Device Data [facility] ABSTRACTION Provider, Abstract 06/29/2025 External Device Data STL ABSTRACTION Provider, Abstract 06/09/2025 7:00 AM CDT - 06/09/2025 11:59 PM CDT Hospital Encounter [facility] Emergency Medical Services [address] [address] Ambulance, [facility] Discharge Disposition: Short term [facility] 05/31/2025 External Device Data STL ABSTRACTION Provider, [...] drink = 0.6 oz pur e alcohol) Feeling Safe Answer Date Recorded Are you in a relationship wi th someone who hurts you emotionally and/or physically? 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 Gender Identity Not on file Sexual Orientation [...] history exists Medical Devices Implanted Type Area Press Tool Maker Device Identifier Shelf Expiration Date Model / Serial / Lot Sheyenne Icp Monitor Implanted:Qty: 1 on 02/01/2015 by Rebecca Barrios MD Right: Frontal Lobe 06/03/2017 110-4B / NA / [id number] Procedures Procedure Name Priority Date/Time Associated Diagnosis Comments CERV/VAG CYTOPATH, THIN PREP AND HPV Routine 05/08/2016 2:46 PM CDT from Last 3 Months or Most Recently Relevant to Health Maintenance Results * CERV/VAG CYTOPATH, THIN PREP AND HPV (05/08/2016 2:46 PM CDT) CASE REPORT Gynecologic Cytology Report Case: [id number] Authorizing Provider: Meaghan Abid FNP Collected: 05/08/2016 1446 Ordering Location: [facility] Received: 05/13/2016 1446 Services [place] First Screen: Amanda Live Specimen: LB PAP TP AND HPV PROT, Endocervix 05/22/2016 1:07 PM CDT [facility] Roster Clerk Specimen Adequacy Satisfactory for evaluation, endocervical/collins sformation zone component absent 05/22/2016 1:07 PM CDT [facility] Roster Clerk General Categorization Negative For Intraepithelial Lesion Or Malignancy 05/22/2016 1:07 PM [facility] Roster Clerk Interpretation Negative For Intraepithelial Lesion Or Malignancy 05/22/2016 1:07 PM T [facility] MULTIMEDIA AUTHOR Clinical Information Abnormal Bleeding 05/22/2016 1:07 PM T [facility] Roster Clerk Clin Hist Comment unknown 05/22/2016 1:07 PM CDT [facility] Roster Clerk Previous Pap Date 05/22/2016 1:07 PM T [facility] Roster Clerk Prev Pap Result 05/22/2016 1:07 PM CDT [facility] GynLMP 05/22/2016 1:07 PM CDT [facility] GynLMPcmt Unknown 05/22/2016 1:07 PM CDT [facility] [employer] [facility] Roster Clerk Educational Note 05/22/2016 1:07 PM CDT [facility] Genital SWAB OF ENDOCERVIX / Unknown 05/08/2016 2:46 PM CDT 05/13/2016 2:46 PM CDT us Meaghan Abdi LEAD ELECTRICAL CONTROLS ENGINEER PATHOLOGY/CYTOLOGY ORDE LIGIA Final Result Performing Organization Address City/State/[facility] Co de Phone Number [facility] [employer] [facility] CLIA# [id number] [place] [address] [facility] [employer] [facility] CLIA # [id number] On license of [id number] [place] [address] from Last 3 Months or Most Recently Relevant to Health Maintenance Insurance MEDICAID [place] [employer] Medicaid Advance Directives For more information, please contact: [phone] Documents on File Type Date Recorded Patient Internet Sourcer Expl anation Advance Directive POA 01/13/2018 7:06 AM Ted dumont of Guardianship Advance Directive Living Will 09/05/2015 8:39 AM Advance Directive Living Will Advance Directive Living Will 07/18/2015 1:14 PM Advance Directive Living Will * Full Code (Latest Code Status on File) Date Activated Date Inactivated Comments 04/29/2025 11:45 PM 05/02/2025 9:54 PM Care Teams Doll Repairer Relationship Specialty Start Date End Date Rashad Locke DO PCP - General Family Practice 05/09/15
--- OUTSIDE RECORDS SUMMARY | 2025-08-26 01:48 | XMS_ITS | Clinical Summary ---
Author Organization [facility] Address [address] [place] [address] Care Team Providers Care Oral Communication Instructor Name Role Phone Jay Kim MD Primary Care Provider [phone] Allergies Active Allergy Reactions Criticality Noted Date [...] 01/13/2018 Assessment & Plan (11/01/2022 6:12 PM CORROSION CONTROL FITTER): Monitor for skin changes or breakdown Gastroesophageal reflux disease without esophagi tis 09/14/2015 Assessment & Plan (11/01/2022 6:16 PM CORROSION CONTROL FITTER): GERD precautions and acid reduction as needed. Post traumatic seizures 09/14/2015 Essential (primary) hypertension 09/14/2015 12/27/2023 Other muscle spasm 09/14/2015 12/27/2023 Unsp intcrn injury w LOC >24 hr w/o ret consc w surv, sqla 09/14/2015 12/27/2023 Dysphagia Assessment & Plan (11/01/2022 6:15 PM CORROSION CONTROL FITTER): Aspiration precautions Monitor nutritional status. Review dietary recommendations. Iron deficiency anemia Assessment & Plan (11/01/2022 6:16 PM CORROSION CONTROL FITTER): CBC with scheduled labs Resolved Problems Problem Noted Date Diagnosed Date Resolved Date Pressure injury of sacral region, stage 2 06/16/2025 08/19/2025 Cellulitis of thigh 04/29/2025 05/13/20 25 Cellulitis of buttock 04/29/20252024 Cellulitis of back 04/29/2025 Pneumonitis 01/12/2018 12/27/2023 05/14/2024 Encounters Date Type Department Care Team Description 06/15/2025 Telephone [facility] Emergency Department Jayne Rucker - Primary Care [address] [place] [address] Jonah Song from Last 3 Months Immunizations Immunization Administration [...] on file Legal Sex Female 9:48 AM CORROSION CONTROL FITTER Gender Identity Not on file Sexual Orientation Not on file Last Filed Vital Signs Vital Sign Reading Time Taken Comments Blood Pressure 124/78 08/16/2025 10:27 AM CDT Pulse 73 08/16/2025 10:27 AM CDT Temperature 36.6 C (97.8 F) 08/16/2025 10:27 AM CDT Respiratory Rate 19 08/16/2025 10:27 AM CDT Oxygen Saturation 96% 08/16/2025 10:27 AM CDT Inhaled Oxygen Concentration - - Weight 91.7 kg (202 lb 3.2 oz) 08/16/2025 10:27 AM CDT Height 165.1 cm (5' 5 ) 08/16/2025 10:27 AM CDT Body Mass Index 33.65 08/16/2025 10:27 AM CDT Plan of Treatment Upcoming Encounters Date Type Department Care Team (Late st Contact Info) Description 09/13/2025 10:55 AM CORROSION CONTROL FITTER External Patient Visit [facility] Emergency Department Jayne Rucker - Primary Care [address] [place] [address] [address] [place] [address] Jay Kim MD [address] [facility] [facility] [address] [place] [address] Health Maintenance Due Date Last Done Comments Hepatitis B Vaccines (1 of 3 - 19+ 3-dose series) 1992 Mammogram 2013 Colonoscopy 2018 Pap Smear 05/08/2019 05/08/2016 Pneumococcal Vaccine: 50+ Years (2 of 2 - PCV20 or PCV21) 2023 08/21/2018 Shingrix (ZOSTER RECOMBINANT) (1 of 2) 2023 Td, Tdap Vaccines Adult 02/01/2025 02/01/2015 Influenza Vaccination (#1) 06/03/202509/22, 08/16/2021, 08/18/2020, Additional history exists Annual Wellness 10/08/2025 10/08/2024, 10/08/2024 HIB Vaccines [...] patient's age to complete this topic Insurance [facility] [facility] Care Teams Oral Communication Instructor Relationship Specialty Start Date End Date Jay Kim MD [address] [facility] [address] [place] [address] PCP - General Internal Medicine 10/04/22
--- OUTSIDE RECORDS SUMMARY | 2025-08-26 01:48 | XMS_ITS | Encounter Summary ---
Author Organization [facility] Address [address] [facility] [place] [address] Care Team Providers Care Armor Reconnaissance Specialist Name Role Phone Rashad Locke DO Primary Care Provider Marisa ble Encounter Details Date Type Department Care Team (Latest Contact Info) Description 07/19/2003 Outpatient Historical [facility] Medicine- [address] [place] [id number] Rashad Locke DO NO ADDRESS ON FILE TENOSYNOV HAND/WRIST NEC (Primary Dx) Social History Tobacco Use Types Packs/Day Years Used Date Smoking Tobacco: Never Assessed Comments Unknown Sex and Gender Information Value Date Recorded Sex Assigned at Not on file Legal Sex Female 3:59 AM 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
--- OUTSIDE RECORDS SUMMARY | 2025-08-26 01:48 | XMS_ITS | Encounter Summary ---
Author Organization [facility] Address [address] [place] [address] Care Team Providers Care Merchandise Presentation Associate Name Role Phone Rashad Locke DO Primary Care Provider Unavaila ble Reason for Referral * Outpatient Services (Routine) - Closed Specialty Diagnoses / Procedures Referred By Contac t Referred To Contact Radiology Diagnoses Abdominal pain Urinary incontinence Procedures CT ABDOMEN PELVIS W WO CONTRAST Rashad Locke DO [facility] CT Scan [place] [address] [address] [place] [address] Phone: tel: fax: Referral ID Status Reason Start Date Expiration Date V isits Requested Visits Authorized [id number] Closed CON View CTS to Schedule (SGF) 10/03/2016 11/09/2016 1 1 NEERING AIDE Encounter Details Date Type Department Care Team (Latest Contact Info) Description 10/03/2016 Ancillary Orders [facility] Centralized Scheduling [address] [address] [place] [address] Rashad Locke DO NO ADDRESS [...] on file Legal Sex Female 3:59 AM ENGINEERING AIDE Gender Identity Not on file Sexual Orientation Not on file Occupation Industry Job Start Date Job End Date Not on file Not on file Not on file Not on file documented as of this encounter Plan of Treatment Not on file documented as of this encounter Results * CT ABDOMEN PELVIS W WO CONTRAST (10/18/2016 8:56 AM ENGINEERING AIDE) Anatomical Region Laterality Modality Abdomen Computed Tomogra phy 10/18/2016 8:59 AM ENGINEERING AIDE Impressions 10/18/2016 9:20 AM ENGINEERING AIDE IMPRESSION: Please see below. Exam: CT ABDOMEN [...] documented as of this encounter Care Teams Merchandise Presentation Associate Relationship Specialty Start Date End Date Rashad Locke DO PCP - General Family Practice 05/09/15 documented as of this encounter
--- OUTSIDE RECORDS SUMMARY | 2025-08-26 01:48 | XMS_ITS | Encounter Summary ---
Author Organization [facility] Address [address] [place] [address] Care Team Providers Care Breadman Name Role Phone Rashad Locke DO Primary Care Provider Unavaila ble Encounter Details Date Type Department Care Team (Late st Contact Info) Description 10/03/[address] [facility] CT Scan [place] [address] [place] [address] Rashad Lokce DO NO ADDRESS ON FILE Social History Tobacco Use Types Packs/Day Years Used Date Smoking Tobacco: Never Smokeless Tobacco: Former Alcohol Use Standard Drinks/Week Comments No 0 (1 standard drink = 0.6 oz pur e alcohol) Comments No Sex and Gender Information Value Date Recorded Sex Assigned at Not on file Legal Sex Female 3:59 AM LEARNING AND DEVELOPMENT ADMINISTRATOR Gender Identity Not on file Sexual Orientation [...] documented as of this encounter Care Teams Breadman Relationship Specialty Start Date End Date Rashad Locke DO PCP - General Family Practice 05/09/15 documented as of this encounter
--- OUTSIDE RECORDS SUMMARY | 2025-08-26 01:48 | XMS_ITS | Encounter Summary ---
Author Organization [facility] Address [address] [place] [address] Care Team Providers Care Highway Maintenance Worker Name Role Phone Rashad Locke DO Primary Care Provider Rupaa ble Encounter Details Date Type Department Care Team (Latest Contact Info) Description 08/06/2004 Outpatient Historical [facility]- [address] [address] [place], [place] ADDRESS ON FILE FEMALE GENITAL SYMPTOMS NOS (Primary Dx); Pain in limb Social History Tobacco Use Types Packs/Day Years Used Date Smoking Tobacco: Never Assessed Comments Unknown Sex and Gender Information Value Date Recorded Sex Assigned at Not on file Legal Sex Female 3:59 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
--- NOTE | 2025-08-26 02:04 | XRR_ITS ---
PROCEDURE INFORMATION: Exam: XR Chest Exam date and time: 08/26/2025 2:12 AM Age: 49 years old Clinical indication: Shortness of breath; Additional info: Relative hypoxia TECHNIQUE: Imaging protocol: Radiologic exam of the chest. Views: 1 view. COMPARISON: CT chest mikal w/*[id number] 06/10/2025 2:48 AM FINDINGS: Lungs: Unremarkable. No consolidation. Pleural spaces: Unremarkable. No pleural effusion. No pneumothorax. Heart/Mediastinum: Unremarkable. No cardiomegaly. Bones/joints: Unremarkable. XR/XR chest 1V portable [id number] IMPRESSION: No acute findings.
[2025-08-26 02:25] VITALS: PULSE 116; RESP 18; O2SAT 88
[2025-08-26 02:30] LABS: Hematocrit 52.2 % (36-47); Hemoglobin 17.50 g/dL (11.27-16.99); Mean Corpuscular HGB Conc 33.5 g/dL (30-55); Mean Corpuscular Hemoglobin 31.1 pg (27-33); Mean Corpuscular Volume 92.7 fl (85-98); Nucleated Red Blood Cells % 0 %; Platelet Count 268 10^3/cmm (157-399); Red Blood Count 5.63 10^6/uL (3.85-5.65); White Blood Count 22.08 10^3/uL (3.29-11.43)
[2025-08-26 02:32] LABS: Glucose Urine UA Negative (Normal); Nitrate Urine Positive (Negative)
[2025-08-26 02:47] LABS: Add Urine Microscopic? YES
[2025-08-26 02:54] LABS: Procalcitonin 2.38 ng/mL (0-0.5)
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
--- NOTE | 2025-08-26 03:04 | ECG_ITS ---
[facility]: 2025[facility]26 Pat Name: Pippa Cevallos Department: Room: Gender: Female Blood Donor Recruiter: : 1975 Requested By: Pamela Covington Order Number: [id number] Jose MD: Isidra Pitts M.D. Measurements Intervals [place] Rate: 114 P: 56 CO: 136 QRS: -30 QRSD: 87 T: 154 QT: 342 QTc: 473 Interpretive Statements SINUS TACHYCARDIA POSSIBLE ANTERIOR MYOCARDIAL INFARCTION , OF INDETERMINATE AGE [30 ms Q WAVE IN V3/V4, OR R < 0.2 mV IN V4] Compared to ECG 06/09/2025 18:59:46 No significant changes Electronically Signed On 08-26-2025 15:23:55 CDT by Isidra Pitts M.D. [email or web address]
[2025-08-26 03:13] LABS: Lactic Sepsis W/Reflex 4.5 mmol/L (0.5-2.2)
[2025-08-26 03:37] LABS: Specific Gravity, Urine 1.032 (1.005-1.030); UA Slide Review UA Slide Review Perf
[2025-08-26 03:41] LABS: Troponin(5th) Baseline 14 ng/L (0-10)
[2025-08-26] MEDS: piperacillin-tazobactam 4.5 GM in sodium chloride 0.9% (plus) 50 ML IV (04:01)
[2025-08-26] MEDS: ondansetron 2 mg/ML SDV 2 mL 4 MG IVP (04:01)
[2025-08-26] MEDS: acetaminophen 1,000 MG/100 ML PIGGYBACK 400 MG IV (04:01)
[2025-08-26] MEDS: HYDROmorphone 0.5 MG/0.5 ML INJ IVP (04:01)
[2025-08-26 04:15] LABS: Reflex Lactate Order REFLEX LACTIC ORDERD
[2025-08-26 04:23] LABS: Troponin 5 2HR 14.91 ng/L (0-10); Troponin 5 2HR Delta 0.91 ABS# (0-10)
[2025-08-26 04:57] VITALS: BP 95/73; PULSE 102; RESP 18; O2SAT 97
--- NOTE | 2025-08-26 05:04 | ECG_ITS ---
[facility]: 2022-[facility]-02 Pat Name: Pippa Cevallos Department: Room: Gender: Female Solar [employer]: : 1975 Requested By: Pamela Covington Order Number: [id number] Jose MD: Isidra Pitts M.D. Measurements Intervals [place] Rate: 98 P: 58 IN: 142 QRS: -10 QRSD: 88 T: 166 QT: 371 QTc: 475 Interpretive Statements SINUS RHYTHM LOW QRS VOLTAGE IN EXTREMITY LEADS [QRS DEFLECTION < 0.5 mV IN LIMB LEADS] POSSIBLE ANTERIOR MYOCARDIAL INFARCTION , OF INDETERMINATE AGE [30 ms Q WAVE IN V3/V4, OR R < 0.2 mV IN V4] Compared to ECG 06/12/2015 15:57:15 Low QRS voltage now present Myocardial infarct finding now present Sinus tachycardia no longer present Short IN interval no longer present Electronically Signed On 08-26-2025 15:30:46 CDT by Isidra Pitts M.D. [email or web address]
[2025-08-26 05:11] LABS: Alanine Aminotransferase 54 U/L (0-33); Albumin Level 4.0 g/dL (3.5-5.2); Alkaline Phosphatase 75 U/L (35-105); Anion Gap 22.1 (5-19); Aspartate Amino Transferase 35 U/L (0-32); Blood Urea Nitrogen 15 mg/dL (6-20); Calcium 9.6 mg/dL (8.5-10.5); Carbon Dioxide 22 mmol/L (22-29); Chloride 102 mmol/L (98-107); Creatinine Clr Calc Pharmacy 184.9107; Globulin 3.5 g/dL (1.3-4.6); Glucose 155 mg/dL (65-115); Osmolality Calculated 296 mOsm/kg (285-295); Potassium 5.1 mmol/L (3.5-5.1); Sodium 141 mmol/L (136-145); Total Protein 7.5 g/dL (6.6-8.7)
[2025-08-26 05:40] LABS: Lactic Acid level (Lactate) 4.3 mmol/L (0.5-2.2)
[2025-08-26 06:50] VITALS: BP 87/65; PULSE 84; RESP 16; O2SAT 100
[2025-08-26 06:54] VITALS: BP 87/65; PULSE 82; RESP 18; O2SAT 100
[2025-08-26 07:00] VITALS: BP 90/64; PULSE 81; O2SAT 100
--- NOTE | 2025-08-26 07:27 | PC.PHAR ---
Pt is resident at [facility]. Faxing current med list 08/26/25 7:27am
[2025-08-26 22:10] LABS: Bacillus cereus group Not Detected (NOT DETECT); Bacillus subtillis group Not Detected (NOT DETECT); Corynebacterium Not Detected (NOT DETECT); Cutibacterium acnes (P.acnes) Not Detected (NOT DETECT); Enterococcus faecalis Not Detected (NOT DETECT); Enterococcus faecium Not Detected (NOT DETECT); Listeria Not Detected (NOT DETECT); Micrococcus Not Detected (NOT DETECT); Pan Candida Not Detected (NOT DETECT); Pan Gram-Negative Not Detected (NOT DETECT); Staphylococcus epidermidis Not Detected (NOT DETECT); Staphylococcus lugdunensis Not Detected (NOT DETECT); Staphylococcus species Detected (NOT DETECT); Streptococcus anginosus group Not Detected (NOT DETECT); Streptococcus pyogenes Not Detected (NOT DETECT); Streptococcus species Not Detected (NOT DETECT); mecA Detected (NOT DETECT); mecC Not Detected (NOT DETECT)
== END 2025-08-26 08:32 | disposition short-term general hospital (02) ==
PROVIDERS: Emergency Provider Emergency Medicine; PCP Internal Medicine
DX: A41.9 Sepsis, unspecified organism (principal); L03.116 Cellulitis of left lower limb; L03.115 Cellulitis of right lower limb; N39.0 Urinary tract infection, site not specified; Z87.820 Personal history of traumatic brain injury; Z99.81 Dependence on supplemental oxygen
CPT/HCPCS: 71045; 80053; 81001; 83605; 84145; 84484; 85025; 87040; 87077; 87086; 87150; 87186; 87205; 93005; 96365; 96366; 96367; 96375; 99285; J0131; J1171; J2405; J2543; J3373; J7120; J9999